=== PATIENT | male | born 2000 | race Caucasian/White ===

== ENCOUNTER 2023-07-26 16:45 | Inpatient (IN) | payer MEDICARE, MEDICAID, SELFPAY ==
[2023-07-26 16:48] VITALS: BP 129/77; BP 132/90; PULSE 100; PULSE 89; RESP 16; TEMP 36.8; O2SAT 96; O2SAT 99; BMI 36.5
[2023-07-26 17:11] VITALS: PULSE 94; RESP 14; O2SAT 98
[2023-07-26 17:12] LABS: MANUAL DIFF FLAG NO
[2023-07-26 17:15] LABS: Basophils Absolute Auto 0.1 X10*3/uL (0.0-0.2); Basophils Percent Auto 0.6 % (0-2); Eosinophils Absolute Auto 0.3 X10*3/uL (0.0-0.4); Eosinophils Percent Auto 3.5 % (0-4); Hemoglobin 15.8 g/dl (14.0-18.0); Imm Gran Abs Auto 0.03 X10*3/uL (0.00-0.03); Imm Gran Pct Auto 0.4 % (0.0-0.4); Lymphocytes Absolute Auto 2.2 X10*3/uL (1.2-4.9); Lymphocytes Percent Auto 27.4 % (20-40); Mean Corpuscular HGB Conc 35.1 g/dl (31.0-36.0); Mean Corpuscular Hemoglobin 30.4 pg (27.0-33.0); Mean Corpuscular Volume 86.5 fL (80.0-98.0); Monocytes Absolute Auto 0.6 X10*3/uL (0.1-1.2); Monocytes Percent Auto 7.5 % (2-11); Neutrophils Absolute Auto 4.8 x10*3/uL (2.0-8.3); Neutrophils Percent Auto 60.6 % (45-73); Platelet Count 290 X10*3/uL (160-400); Red Cell Distribution Width 11.9 % (11.0-16.0)
--- NOTE | 2023-07-26 17:15 | ED.GENADULT ---
HPI - General Adult General Chief complaint: Psychiatric Symptoms Stated complaint: from [facility], SI, thought of SI since sobriety Time Seen by Provider: 07/26/23 17:15 Source: patient and EMS Mode of arrival: EMS Limitations: no limitations History of Present Illness HPI narrative: Patient is a 23 year old assigned male at with a history of substance abuse presenting to the emergency department today with increased depression and suicidal ideation. Patient states that he is increasingly suicidal. Patient denies any dizziness, lightheadedness, abdominal pain, nausea, vomiting, fever, chills, blurry vision, double vision, loss of vision, chest pain, difficulty breathing, shortness of breath, back pain, night sweats, pain with urination, increased urinary frequency, increased urinary urgency, blood in his urine or stool, syncope or a near syncopal episode, recent trauma or falls, bowel incontinence, bladder incontinence, bowel retention, bladder retention, or any other complaints at this time. Relieving factors: none Exacerbating factors: none Associated symptoms: denies other symptoms Treatments prior to arrival: none Related Data Home Medications ?Medication ?Instructions ?Recorded ?Confirmed benztropine 0.5 mg tablet 0.5 mg PO BEDTIME PRN Anxiety 07/26/23 07/26/23 clonidine HCl 0.1 mg tablet 0.1 mg PO TID PRN Anxiety 07/26/23 07/26/23 escitalopram oxalate 10 mg tablet 10 mg PO DAILY 07/26/23 07/26/23 gabapentin 400 mg capsule 400 mg PO BID 07/26/23 07/26/23 haloperidol 5 mg tablet 5 mg PO BID PRN Agitation 07/26/23 07/26/23 ibuprofen 800 mg tablet 800 mg PO TID PRN pain 07/26/23 07/26/23 nicotine (polacrilex) 4 mg gum 4 mg PO Q2H 07/26/23 07/26/23 oxcarbazepine 300 mg tablet 600 mg PO BEDTIME 07/26/23 07/26/23 prazosin 2 mg capsule 2 mg PO BEDTIME 07/26/23 07/26/23 trazodone 50 mg tablet 50 mg PO BEDTIME PRN Insomnia 07/26/23 07/26/23 Allergies Allergy/AdvReac Type Severity Reaction Status Date / Time fish derived [fish] Allergy Intermediate Unknown Verified 07/26/23 16:59 Review of Systems Constitutional: Constitutional: Reports no additional constitutional complaints, Denies chills, Denies fever(s) and Denies night sweats Eyes: Eyes: Reports no additional eye complaints, Denies blurry vision, Denies change in vision, Denies diplopia, Denies eye discharge, Denies loss of vision and Denies eye pain ENT: Denies dizziness Cardiovascular: Cardiovascular: Reports no additional cardiovascular complaints, Denies chest pain, Denies lightheadedness, Denies Loss of Consciousness and Denies dyspnea Respiratory: Respiratory: Reports no additional respiratory complaints and Denies dyspnea Gastrointestinal: Gastrointestinal: Reports no additional gastrointestinal complaints, Denies abdominal pain, Denies melena, Denies hematochezia, Denies change in bowel habits and Denies change in stool character Genitourinary: Genitourinary: Reports no additional male genitourinary complaints, Denies hematuria, Denies oliguria, Denies difficulty urinating, Denies dysuria, Denies urinary frequency, Denies urinary hesitancy, Denies urinary incontinence and Denies urinary urgency Musculoskeletal: Musculoskeletal: Reports no additional musculoskeletal complaints, Denies numbness and Denies tingling Neurologic: Denies dizziness, Denies loss of vision, Denies numbness and Denies tingling Psychiatric: Psychiatric: Denies homicidal ideation and Reports suicidal ideation Endocrine: Endocrine: Reports no additional endocrine complaints Hematologic/Lymphatic: Hematologic/Lymphatic: Reports no additional hematologic/lymphatic complaints Allergic/Immunologic: Allergic/Immunologic: Reports no additional allergic/immunologic complaints PMFSH Past Medical History Attestation statement: The following information was validated with the patient. Source: old records reviewed and nursing notes reviewed Social History Social History Smoked in Last 30 Days: No Use of substances other than those prescribed or required for medical reasons: No Advance Directives: No Advance Directives Information Provided: No Physical Exam ED Vital Signs: Vital Signs - 24 hr 07/26/23 16:48 07/26/23 17:11 07/27/23 06:40 Temperature 98.3 F 98.4 F Pulse Rate 89 94 66 Respiratory Rate 16 14 16 Blood Pressure 129/77 110/60 Pulse Oximetry 96 98 97 Oxygen Delivery Method Room Air Room Air Room Air BMI result Body Mass Index 36.5 Const General: cooperative, no acute distress, alert and awake Nutritional Appearance: well nourished Orientation/consciousness: patient oriented x3 Limitations: no limitations HENMT Head: Yes normal to inspection and Yes atraumatic Ears: hearing grossly normal bilaterally and external ears normal General nose exam: Normal external nose present, no nasal discharge noted and no epistaxis Face and sinus: Yes normal facial exam, No abrasion and No laceration Mouth: Normal oral and palatal mucosa present, no drooling and no muffled voice Eyes General: appearance normal, both eyes and all related structures Periorbital: periorbital findings normal Eyelids: Yes eyelids normal Conjunctivae: conjunctivae normal Pupils: Equal, round and reactive pupils present EOM: EOMs intact bilaterally Neck Neck: Yes normal visual inspection, Yes full ROM and Yes no lymphadenopathy Chest Chest palpation & inspection: normal inspection of the chest Resp Effort & Inspection: normal respiratory effort and able to speak in complete sentences GI Inspection: Yes normal to inspection Neuro General: patient oriented x3 and moves all extremities Cranial nerves: Yes Equal, round and reactive pupils present Cognition (Neuro): normal cognition Motor exam (neuro): 5/5 motor strength present throughout Sensory Exam: Normal double simultaneous stimulation for sensation Coordination: [id number] test normal Extrem General: Yes normal to inspection, Yes full ROM and Yes capillary refill normal Psych Appearance: grossly normal Mental Status: mental status grossly normal Affect: Sad affect present Thought content: Suicidality present Course Reevaluation(s) Reevaluation #1: Patient will be an inpatient psychiatric bed search. Patient placed in physician observation as bed search occurs. Observation started at 1716. Time: 17:16 Reevaluation #2: Physician observation continued. VS stable, no acute events overnight, inpatient bed search. will continue to monitor. 07/27/23 729am Time: 07:29 Medical Decision Making Medical Decision Making MDM Narrative: Patient is a 23 year old assigned male at with a history of drug use presenting to the emergency department today with suicidal ideation. Patient's physical exam was as noted in the physical exam portion of this note. Patient's blood work was unremarkable. Patient's urine showed no acute process. I explained my physical exam findings as well as all test results to the patient. I answered all questions asked by the patient. CARE team evaluated the patient who recommended the patient be an inpatient psychiatric bed search. Patient verbalized agreement and understanding with this treatment plan and remaining an inpatient bed search. Differential Diagnosis Differential Diagnoses: The differential diagnosis associated with the presentation includes Suicidal ideation Depression Admission/Observation Consideration of admission/observation: Escalation of care including admission/observation considered Patient to be psychiatrically admitted and is currently a bed search. Consult Healthcare Provider Management of the patient was discussed with: Behavioral Health Provider (spoke to the CARE team as noted in the MDM Rationale portion of this note.) Lab Data [facility] Lab Attestation statement: I reviewed the patient's lab results. My interpretation of these results are in the MDM Rationale portion of this note. 07/26/23 17:06 07/26/23 17:06 Labs: Lab Results 07/26/23 Range/Units 17:06 WBC 8.0 (4.8-10.8) X10*3/uL RBC 5.20 (4.60-5.80) X10*6/uL Hgb 15.8 (14.0-18.0) g/dl Hct 45.0 (42.0-52.0) % MCV 86.5 (80.0-98.0) fL MCH 30.4 (27.0-33.0) pg MCHC 35.1 (31.0-36.0) g/dl RDW 11.9 (11.0-16.0) % Plt Count 290 (160-400) X10*3/uL MPV 9.0 L (9.4-12.4) fL Immature Gran % (Auto) 0.4 (0.0-0.4) % Neut % (Auto) 60.6 (45-73) % Lymph % (Auto) 27.4 (20-40) % [place] % (Auto) 7.5 (2-11) % Eos % (Auto) 3.5 (0-4) % Baso % (Auto) 0.6 (0-2) % Lymph # (Auto) 2.2 (1.2-4.9) X10*3/uL [place] # (Auto) 0.6 (0.1-1.2) X10*3/uL Eos # (Auto) 0.3 (0.0-0.4) X10*3/uL Baso # (Auto) 0.1 (0.0-0.2) X10*3/uL Abs Immat Gran (auto) 0.03 (0.00-0.03) X10*3/uL Absolute Neuts (auto) 4.8 (2.0-8.3) x10*3/uL Absolute Nucleated RBC 0.000 (0.0-0.012) X10*3/uL Nucleated RBC % (auto) 0.0 (0.0-0.2) /100WBC Sodium 142 (135-145) mmol/L Potassium 4.4 (3.3-5.1) mmol/L Chloride 105 (96-108) mmol/L Carbon Dioxide 26 (22-29) mmol/L Anion Gap 15 (12-20) BUN 15 (9-16) mg/dL Creatinine 0.92 (0.5-1.4) mg/dL Estim Creat Clear Calc 148.1 Estimated GFR > 60 Random Glucose 91 (60-115) mg/dL Calcium 10.2 (8.4-10.2) mg/dL Total Bilirubin 0.4 (0.0-1.0) mg/dL AST 26 (5-37) U/L ALT 40 (0-40) U/L Alkaline Phosphatase 96 (39-117) U/L Total Protein 8.1 H (6.5-8.0) g/dL Albumin 4.5 (3.5-5.0) g/dL Urine Color Yellow Urine Appearance Clear Urine pH 5.5 (5.0-9.0) Ur Specific [place] 1.025 (1.005-1.025) Urine Protein Negative (Neg-Trace) mg/dL Urine Glucose (UA) Negative (Negative) mg/dL Urine Ketones Negative (Negative) mg/dL Urine Blood Negative (Negative) Urine Nitrite Negative (Negative) Ur Leukocyte Esterase Negative (Negative) Urine Opiates Screen Not Detected (Not Detect) Ur Buprenorphine Scrn Not Detected (Not Detect) ng/mL Ur Oxycodone Screen Not Detected (Not Detect) ng/mL Urine Methadone Screen Not Detected (Not Detect) ng/mL Urine Fentanyl Screen Not Detected (Not Detect) Ur Barbiturates Screen Not Detected (Not Detect) Ur Phencyclidine Scrn Not Detected (Not Detect) Ur Amphetamines Screen Not Detected (Not Detect) U Benzodiazepines Scrn Not Detected (Not Detect) Urine Cocaine Screen Not Detected (Not Detect) U Marijuana (THC) Screen Not Detected (Not Detect) Ethyl Alcohol < 10 mg/dL Independent Historian Clinical information obtained from an independent historian. History obtained from or confirmed by: EMS (EMS provided additional history and confirmed the history provided by the patient.) Critical Care Time Critical Care Time Critical Care Time: Yes Total Critical Care Time: 68 Attestation: I spent 68 minutes of Critical Care Time with this patient. This does not include time spent on separately reported billable procedures. Discharge Plan Discharge Clinical Impression: Suicidal ideation Patient Disposition: Still a Patient Prescriptions: No Action ibuprofen 800 mg tablet 800 mg PO TID PRN (Reason: pain) oxcarbazepine 300 mg tablet 600 mg PO BEDTIME nicotine (polacrilex) 4 mg gum 4 mg PO Q2H trazodone 50 mg Tablet 50 mg PO BEDTIME PRN (Reason: Insomnia) Rx Instructions: [facility] escitalopram oxalate 10 mg Tablet 10 mg PO DAILY Rx Instructions: [facility] haloperidol 5 mg tablet 5 mg PO BID PRN (Reason: Agitation) clonidine HCl 0.1 mg Tablet 0.1 mg PO TID PRN (Reason: Anxiety) Rx Instructions: [facility] benztropine 0.5 mg Tablet 0.5 mg PO BEDTIME PRN (Reason: Anxiety) Rx Instructions: [place] gabapentin 400 mg Capsule 400 mg PO BID Rx Instructions: [facility] prazosin 2 mg Capsule 2 mg PO BEDTIME Rx Instructions: [facility] Interventions: [place]-Suicide Risk Severity Scale Last Done: 07/26/23 17:11 Print Language: Persian
[2023-07-26 17:16] LABS: Appearance Urine Clear; Color Urine Yellow; Glucose Urine UA Negative (Negative); Leukocyte Esterase Urine Negative (Negative); Nitrite Urine Negative (Negative); PH 5.5 (5.0-9.0); Specific Gravity - Urine 1.025 (1.005-1.025); Urine Blood Negative (Negative); Urine Ketones Negative (Negative); Urine Protein Negative (Neg-Trace)
--- NOTE | 2023-07-26 17:30 | PC.NURSE ---
Patient presents to the ED today with suicidal ideation secondary to increased stressors in his life. He reports that he is 4 months sober from drugs but ever since getting sober, he has been more stressed and is now starting to feel like ending it all would help . Patient is calm and cooperative, help seeking, cooperative with care thus far. patient aware of plan of care at this time, respirations even and unlabored, no apparent distress noted at this time
[2023-07-26 17:37] LABS: Amphetamine Screen Urine Not Detected (Not Detect); Barbiturates, Urine Not Detected (Not Detect); Benzodiazepines Screen Urine Not Detected (Not Detect); Buprenorphine Scr Not Detected (Not Detect); Cannabinoid Screen Urine Not Detected (Not Detect); Cocaine Screen Urine Not Detected (Not Detect); Fentanyl, urine Not Detected (Not Detect); Methadone Screen, Urine Not Detected (Not Detect); Opiate Screen Urine Not Detected (Not Detect); Oxycodone Screen Urine Not Detected (Not Detect); Phencyclidine Screen Urine Not Detected (Not Detect)
[2023-07-26 17:49] LABS: Alanine Aminotransferase 40 U/L (0-40); Albumin Level 4.5 g/dL (3.5-5.0); Alkaline Phosphatase 96 U/L (39-117); Anion Gap 15 (12-20); Aspartate Amino Transferase 26 U/L (5-37); Bilirubin Total 0.4 mg/dL (0.0-1.0); Blood Urea Nitrogen 15 mg/dL (9-16); Calcium 10.2 mg/dL (8.4-10.2); Carbon Dioxide 26 mmol/L (22-29); Chloride 105 mmol/L (96-108); Creatinine Clr Calc Pharmacy 148.1; Estimated Glomerular Filt Rate > 60; Ethanol < 10 mg/dL; Glucose Random 91 mg/dL (60-115); Potassium 4.4 mmol/L (3.3-5.1); Sodium 142 mmol/L (135-145); Total Protein 8.1 g/dL (6.5-8.0)
--- NOTE | 2023-07-27 05:00 | PC.NURSE ---
Patient slept through the night, no distress observed/reported, no behavior issues, deposition per care team is section-12 inpatient bed search, med rec completed/pending provider's approval, will continue to monitor
[2023-07-27 06:40] VITALS: BP 110/60; PULSE 66; RESP 16; TEMP 36.9; O2SAT 97
--- NOTE | 2023-07-27 08:03 | PC.NURSE ---
Assumed care of patient at 0645, patient appears to be sleeping, respirations even and unlabored, no apparent distress noted at this time. Continue plan of care for inpatient bedsearch
--- NOTE | 2023-07-27 09:51 | PC.NURSE ---
[facility] Enrichment Assistant Jon Key: [phone]
[2023-07-27 18:38] VITALS: RESP 16
--- NOTE | 2023-07-27 19:11 | PC.NURSE ---
patient appears to remain at rest at present respirations are even and unlabored patient appears in no distress.
[2023-07-27 21:24] VITALS: BP 109/59; PULSE 52; RESP 18; TEMP 36.6; O2SAT 97
[2023-07-27] MEDS: OXcarbazepine 300 MG TABLET 600 MG PO (21:52)
[2023-07-27] MEDS: Prazosin HCL 1 MG CAPSULE 2 MG PO (21:52)
[2023-07-27] MEDS: Gabapentin 400 MG CAPSULE PO (21:52)
--- NOTE | 2023-07-28 | ECG_ITS ---
Test Reason : check qt interval Blood Pressure : / mmHG Vent. Rate : 091 BPM Atrial Rate : 091 BPM P-R Int : 178 ms QRS Dur : 094 ms QT Int : 348 ms P-R-T Axes : 064 026 047 degrees QTc Int : 428 ms Normal sinus rhythm Normal ECG No previous ECGs available Referred By: Arnoldo Peace Electronically Signed By:Harry Sorto
[2023-07-28 06:17] VITALS: BP 113/61; PULSE 83; RESP 17; TEMP 36.7; O2SAT 95
--- NOTE | 2023-07-28 07:23 | PC.NURSE ---
Assumed care of patient at 0645, patient appears to be sleeping, respirations even and unlabored, no apparent distress noted at this time. Patient remains S12 inpatient bedsearch
[2023-07-28] MEDS: Gabapentin 400 MG CAPSULE PO ×2 (08:30→20:22)
[2023-07-28] MEDS: Nicotine Polacrilex 2 MG GUM 4 MG BUCCAL (08:30)
[2023-07-28] MEDS: Escitalopram Oxalate 10 MG TABLET PO (08:30)
--- NOTE | 2023-07-28 09:32 | MHC.CARE ---
Phone call from Maryse Cameron from [facility] program, she reports they are not wanting pt to return to program and looking to speak with clinician working with patient. She can be reached @ [phone] for collateral information.
--- NOTE | 2023-07-28 19:01 | PC.NURSE ---
patient appears to remain asleep at present respirations are even and unlabored patient appears in no distress.
[2023-07-28] MEDS: OXcarbazepine 300 MG TABLET 600 MG PO (20:22)
[2023-07-28] MEDS: Prazosin HCL 1 MG CAPSULE 2 MG PO (20:22)
[2023-07-29] VITALS: BP 110/65; PULSE 76; RESP 16; TEMP 37.1; O2SAT 98
--- NOTE | 2023-07-29 07:14 | PC.NURSE ---
Assumed care of patient at 0645. Patient is observed sleeping in there bed at this time. No signs of distress, breathing is even and unlabored at this time. Will continue plan of care.
[2023-07-29] MEDS: Gabapentin 400 MG CAPSULE PO ×2 (09:14→20:13)
[2023-07-29] MEDS: Escitalopram Oxalate 10 MG TABLET PO (09:14)
[2023-07-29 11:17] VITALS: BP 115/64; PULSE 63; RESP 14; TEMP 36.8; O2SAT 94
[2023-07-29 14:20] VITALS: BP 117/74; PULSE 85; RESP 18; TEMP 36; O2SAT 95
--- NOTE | 2023-07-29 14:57 | P.HPPS_ITS ---
HPI Date of Service: 07/29/23 Chief Complaint: depression Sources of Information: patient interviewed, chart reviewed and crisis/core team assessment reviewed HPI Subjective Notes: Ring Warning and Conditional Voluntary Healthcare Proxy: No Guardianship: No Medical Problems Affecting Mental Status: No Narrative: 23 yo male with hx of substance use disorder, Bipolar depression and SI admitted to M3 on CV. Pt states he began to have SI at the [facility] over the past 2 weeks; he reports he does not want to go back there but does not say why. Pt brought ot Ed by EMS from [facility]. Pt states he has not been consistent with his medications. He says he is taking haldol deconoate IM monthly and that he received his most recent injection at the [facility] approximately 2 weeks ago but this will need to be verified. Pt endorses depressed mood, paapthy, intermittent anger and anxiety; he reports clonidine helps with anxiety and haldol PRN helps with anger. Pt reports truam history but declines to speak about details; he reports 4 months sober from opiates. Pt denies hearing voices and no visula hallucinations. Past Psychiatric History: [facility] 2023 , [facility] respite x 5 days 2023, hx of inpatient off and on since childhood, TSS, detox, CSS and dual dx treatment. Most recent one year at program called [facility] in [facility]. Medical Evaluation Reviewed: Yes medically cleared in ED [facility] Narrative: pt denies medical problems Family History: Pt is currently homeless. born and raised in [facility]. lived with bio mother and father and grandparents growing up. has one older sister. Social History: homeless Substance History: fentanyl use until 4 months ago Trauma History: childhood was difficult but pt discloses no details Diagnostics Vital Signs (24Hr): Vital Signs - 24 hr 07/29/23 00:00 07/29/23 11:17 Temperature 98.7 F 98.3 F Pulse Rate 76 63 Respiratory Rate 16 14 Blood Pressure 110/65 115/64 Pulse Oximetry 98 94 Oxygen Delivery Method Room Air Room Air BMI result Body Mass Index 36.5 Labs 07/26/23 17:06 07/26/23 17:06 Meds/Allergies Meds Home Medications ?Medication ?Instructions ?Recorded ?Confirmed ?Type benztropine 0.5 mg tablet 0.5 mg PO BEDTIME PRN Anxiety 07/26/23 07/26/23 History clonidine HCl 0.1 mg tablet 0.1 mg PO TID PRN Anxiety 07/26/23 07/26/23 History escitalopram oxalate 10 mg tablet 10 mg PO DAILY 07/26/23 07/26/23 History gabapentin 400 mg capsule 400 mg PO BID 07/26/23 07/26/23 History haloperidol 5 mg tablet 5 mg PO BID PRN Agitation 07/26/23 07/26/23 History ibuprofen 800 mg tablet 800 mg PO TID PRN pain 07/26/23 07/26/23 History nicotine (polacrilex) 4 mg gum 4 mg PO Q2H 07/26/23 07/26/23 History oxcarbazepine 300 mg tablet 600 mg PO BEDTIME 07/26/23 07/26/23 History prazosin 2 mg capsule 2 mg PO BEDTIME 07/26/23 07/26/23 History trazodone 50 mg tablet 50 mg PO BEDTIME PRN Insomnia 07/26/23 07/26/23 History Allergies Allergies Allergy/AdvReac Type Severity Reaction Status Date / Time fish derived [fish] Allergy Intermediate Unknown Verified 07/26/23 16:59 Mental Status Exam Mental Status Exam Patient Appearance: Disheveled and Unkempt Patient Orientation: Person, Place, Time and Situation Level of Consciousness: Awake Patient Behavior: Appropriate and Cooperative Mood Description: Withdrawn, Anxious and Sad Affect Description: Withdrawn, Anxious and Sad Patient Cognition Impaired: No Ability to Follow Directions: Good Speech Pattern: Clear, Soft-Spoken and Delayed Memory Description: Intact Hallucinations: None Delusions: Not Present Thought Process: Slowed Thinking Thought Content: positive for [place] Judgement: Fair Assessment & Plan Assessment & Plan (1) Bipolar disorder current episode depressed: Status: Acute Qualifiers: Current episode severity: severe Psychotic features: with psychotic features Qualified Code(s): F31.5 - Bipolar disorder, current episode depressed, severe, with psychotic features Code(s): F31.30 - Bipolar disorder, current episode depressed, mild or moderate severity, unspecified (2) Suicidal ideation: Status: Acute Code(s): R45.851 - Suicidal ideations (3) Opioid use disorder, mild, in early remission, abuse: Status: Acute Code(s): F11.11 - Opioid abuse, in remission Plan admit to M3 Cv 15 min checks meds continued collect collateral verify haldol deconoate dose and admin date labs: CBC, CMP, TSH, T4, A1c, lipid panel. folate, vit B12 discharge planning with team Patient educated on: diagnosis, medication risk/benefits, substance abuse and therapeutic strategies Informed Consent: understands and further education needed Reason for continued inpatient stay Substantial Risk for: harm to self, inability to function and rapid decompensation Statement Statement: I have reviewed the history and physical and performed a pertinent examination on my patient. No changes have occurred unless specified. If the History and Physical was not performed prior to admission, the Hospitalist's service will be consulted for completing the admission physical. Time Spent With Patient Time: Total time managing care of this patient today _60___ minutes.
[2023-07-29 16:17] VITALS: BMI 43.5
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
[2023-07-29 20:00] VITALS: BP 119/69; PULSE 100; RESP 18; TEMP 36.2; O2SAT 96
[2023-07-29] MEDS: OXcarbazepine 300 MG TABLET 600 MG PO (20:13)
[2023-07-29] MEDS: Benztropine Mesylate 0.5 MG TABLET PO (20:14)
[2023-07-29 20:15] VITALS: BP 119/69
[2023-07-29] MEDS: Prazosin HCL 1 MG CAPSULE 2 MG PO (20:15)
[2023-07-29] MEDS: traZODone HCL 50 MG TABLET PO (20:28)
[2023-07-30 08:00] VITALS: BP 110/65; PULSE 70; RESP 16; TEMP 36.9; O2SAT 95
[2023-07-30 08:25] LABS: MANUAL DIFF FLAG NO
[2023-07-30 08:31] LABS: Basophils Percent Auto 0.7 % (0-2); Eosinophils Absolute Auto 0.2 X10*3/uL (0.0-0.4); Eosinophils Percent Auto 3.2 % (0-4); Hematocrit 44.8 % (42.0-52.0); Hemoglobin 15.6 g/dl (14.0-18.0); Imm Gran Abs Auto 0.01 X10*3/uL (0.00-0.03); Imm Gran Pct Auto 0.2 % (0.0-0.4); Lymphocytes Absolute Auto 1.6 X10*3/uL (1.2-4.9); Lymphocytes Percent Auto 29.6 % (20-40); Mean Corpuscular HGB Conc 34.8 g/dl (31.0-36.0); Mean Corpuscular Hemoglobin 30.3 pg (27.0-33.0); Mean Platelet Volume 9.2 fL (9.4-12.4); Monocytes Absolute Auto 0.4 X10*3/uL (0.1-1.2); Monocytes Percent Auto 6.9 % (2-11); Neutrophils Absolute Auto 3.2 x10*3/uL (2.0-8.3); Neutrophils Percent Auto 59.4 % (45-73); Platelet Count 237 X10*3/uL (160-400); Red Blood Count 5.15 X10*6/uL (4.60-5.80); Red Cell Distribution Width 11.8 % (11.0-16.0); White Blood Count 5.3 X10*3/uL (4.8-10.8)
[2023-07-30 09:15] LABS: Alanine Aminotransferase 35 U/L (0-40); Albumin Level 4.2 g/dL (3.5-5.0); Alkaline Phosphatase 92 U/L (39-117); Anion Gap 15 (12-20); Aspartate Amino Transferase 22 U/L (5-37); Bilirubin Direct 0.2 mg/dL (0.0-0.5); Bilirubin Total 0.6 mg/dL (0.0-1.0); Blood Urea Nitrogen 13 mg/dL (9-16); Calcium 9.9 mg/dL (8.4-10.2); Carbon Dioxide 27 mmol/L (22-29); Chloride 105 mmol/L (96-108); Cholesterol 132 mg/dL (<200); Creatinine Clr Calc Pharmacy 168.2; Estimated Glomerular Filt Rate > 60; Glucose Fasting 87 mg/dL (60-99); HDL Cholesterol 26 mg/dL (>40); LDL Cholesterol Calculated 96 mg/dL (<100); Potassium 4.5 mmol/L (3.3-5.1); Sodium 142 mmol/L (135-145); Total Protein 7.4 g/dL (6.5-8.0); Triglycerides 53 mg/dL (<150)
[2023-07-30 09:22] LABS: Estimated Average Glucose 97 mg/dL
[2023-07-30] MEDS: Gabapentin 400 MG CAPSULE PO ×2 (09:26→20:29)
[2023-07-30] MEDS: Escitalopram Oxalate 10 MG TABLET PO (09:26)
[2023-07-30 09:35] LABS: Free T4 (Free Thyroxine) 0.99 ng/dL (0.71-1.85)
--- NOTE | 2023-07-30 09:56 | HO.PSYCHPN ---
Subjective Subjective Date of Service: 07/30/23 Reason For Visit: depression Subjective Notes: Conditional Voluntary Interim History: Reviewed with Dr. Garner. Pt reports feeling depressed today;pt stated, I came here because I was feeling suicidal because when I was at [facility] there were drug dealers at every corner. It was triggering me to use since I've been sober for four months . Pt reports he would like to maintain his sobriety and reconnect with his family. Pt reports suicidal ideation without plan; pt stated, I just want to feel comfortable in my own skin . pt denies HI/VH/AH. pt requested clonidine to be increased to 0.2mg TID. Medication Compliance: Yes Side effects from medications: No Review of Systems Constitutional: Reports as per HPI Eyes: Reports as per HPI Reports as per HPI Cardiovascular: Reports as per HPI Respiratory: Reports as per HPI Gastrointestinal: Reports as per HPI Genitourinary: Reports as per HPI Musculoskeletal: Reports as per HPI Skin/Breast: Reports as per HPI Reports as per HPI Psychiatric: Reports as per HPI Endocrine: Reports as per HPI Hematologic/Lymphatic: Reports as per HPI Allergic/Immunologic: Reports as per HPI Mental Status Exam Mental Status Exam Narrative: Pt is alert and oriented; behavior is cooperative and calm; dressed in casual attire; mood is described as depressed ; eye contact appropriate; Speech is normal rate, volume and prosody and not pressured; thought process is organized and goal directed; Thought content is on tx; denies HI/VH/AH. Pt reports suicidal ideation with no plan. Diagnostics Vital Signs (24Hr): Vital Signs - 24 hr 07/29/23 11:17 07/29/23 14:20 07/29/23 20:00 Temperature 98.3 F 96.8 F 97.1 F Pulse Rate 63 85 100 Respiratory Rate 14 18 18 Blood Pressure 115/64 117/74 119/69 Pulse Oximetry 94 95 96 Oxygen Delivery Method Room Air Room Air Room Air 07/29/23 20:15 07/30/23 08:00 Temperature 98.4 F Pulse Rate 70 Respiratory Rate 16 Blood Pressure 119/69 110/65 Pulse Oximetry 95 Oxygen Delivery Method Room Air BMI result Body Mass Index 43.5 Labs 07/30/23 08:16 07/30/23 08:16 Labs: Laboratory Results - last 48 hr 07/30/23 08:16 WBC 5.3 RBC 5.15 Hgb 15.6 Hct 44.8 MCV 87.0 MCH 30.3 MCHC 34.8 RDW 11.8 Plt Count 237 MPV 9.2 L Immature Gran % (Auto) 0.2 Neut % (Auto) 59.4 Lymph % (Auto) 29.6 [place] % (Auto) 6.9 Eos % (Auto) 3.2 Baso % (Auto) 0.7 Lymph # (Auto) 1.6 [place] # (Auto) 0.4 Eos # (Auto) 0.2 Baso # (Auto) 0.0 Abs Immat Gran (auto) 0.01 Absolute Neuts (auto) 3.2 Absolute Nucleated RBC 0.000 Nucleated RBC % (auto) 0.0 Sodium 142 Potassium 4.5 Chloride 105 Carbon Dioxide 27 Anion Gap 15 BUN 13 Creatinine 0.89 Estim Creat Clear Calc 168.2 Estimated GFR > 60 Fasting Glucose 87 Estimat Average Glucose 97 Hemoglobin A1c % 5.0 Calcium 9.9 Total Bilirubin 0.6 Direct Bilirubin 0.2 AST 22 ALT 35 Alkaline Phosphatase 92 Total Protein 7.4 Albumin 4.2 Triglycerides 53 Cholesterol 132 LDL Cholesterol, Calc 96 HDL Cholesterol 26 L TSH 1.00 Free T4 0.99 Medications Medications Current Medications Acetaminophen (Acetaminophen 325 Mg Tablet) 650 mg PO Q6H PRN PRN Reason: Headache/Pain Mild Scale (1-3) Al Hydroxide/Mg Hydroxide (Magnesium Hydrox/Alum Hydrox 30 Ml Oral.Susp) 30 ml PO Q6H PRN PRN Reason: Heartburn/Nausea Benztropine Mesylate (Benztropine Mesylate 0.5 Mg Tablet) 0.5 mg PO BEDTIME [facility] Last Admin: 07/29/23 20:14 Dose: 0.5 mg Clonidine HCl (Clonidine Hcl 0.1 Mg Tablet) 0.1 mg PO TID PRN; Protocol PRN Reason: Anxiety Escitalopram Oxalate (Escitalopram Oxalate 10 Mg Tablet) 10 mg PO DAILY [facility] Last Admin: 07/30/23 09:26 Dose: 10 mg Gabapentin (Gabapentin 400 Mg Capsule) 400 mg PO BID [facility] Last Admin: 07/30/23 09:26 Dose: 400 mg Haloperidol (Haloperidol 5 Mg Tablet) 5 mg PO BID PRN PRN Reason: Agitation Hydroxyzine HCl (Hydroxyzine Hcl 25 Mg Tablet) 25 mg PO Q6H PRN PRN Reason: Anxiety Ibuprofen (Ibuprofen 400 Mg Tablet) 400 mg PO TID PRN PRN Reason: Pain, Moderate(Pain Scale 4-6) Magnesium Hydroxide (Milk Of Magnesia 30 Ml Oral.Susp) 30 ml PO DAILY PRN PRN Reason: Constipation Nicotine Polacrilex (Nicotine Polacrilex 2 Mg Gum) 4 mg BUCCAL Q2H PRN PRN Reason: Nicotine Cravings Oxcarbazepine (Oxcarbazepine 300 Mg Tablet) 600 mg PO BEDTIME [facility] Last Admin: 07/29/23 20:13 Dose: 600 mg Prazosin HCl (Prazosin Hcl 1 Mg Capsule) 2 mg PO BEDTIME [facility]; Protocol Last Admin: 07/29/23 20:15 Dose: 2 mg Trazodone HCl (Trazodone Hcl 50 Mg Tablet) 50 mg PO BEDTIME MRX1 PRN PRN Reason: Insomnia Last Admin: 07/29/23 20:28 Dose: 50 mg Allergies Allergies Allergy/AdvReac Type Severity Reaction Status Date / Time fish derived [fish] Allergy Intermediate Unknown Verified 07/26/23 16:59 Assessment & Plan Assessment & Plan (1) Bipolar disorder current episode depressed: Qualifiers: Current episode severity: severe Psychotic features: with psychotic features Qualified Code(s): F31.5 - Bipolar disorder, current episode depressed, severe, with psychotic features Status: Acute Code(s): F31.30 - Bipolar disorder, current episode depressed, mild or moderate severity, unspecified (2) Suicidal ideation: Status: Acute Code(s): R45.851 - Suicidal ideations (3) Opioid use disorder, mild, in early remission, abuse: Status: Acute Code(s): F11.11 - Opioid abuse, in remission Plan admit to M3 Cv 15 min checks meds continued collect collateral verify haldol deconoate dose and admin date labs: CBC, CMP, TSH, T4, A1c, lipid panel. folate, vit B12 discharge planning with team 07/29:Pt reports feeling depressed today;pt stated, I came here because I was feeling suicidal because when I was at [facility] there were drug dealers at every corner. It was triggering me to use since I've been sober for four months . Pt reports he would like to maintain his sobriety and reconnect with his family. Pt reports suicidal ideation without plan; pt stated, I just want to feel comfortable in my own skin . pt denies HI/VH/AH. pt requested clonidine to be increased to 0.2mg TID. Patient educated on: diagnosis, medication risk/benefits, substance abuse and therapeutic strategies Informed Consent: understands Reason for continued inpatient stay Substantial Risk for: harm to self and med/psych decompensation Time Spent With Patient Time: Total time managing care of this patient today _20___ minutes.
[2023-07-30 12:10] VITALS: BP 113/63; PULSE 79; O2SAT 96
[2023-07-30 12:12] VITALS: BP 113/63
[2023-07-30] MEDS: cloNIDine HCL 0.1 MG TABLET PO (12:12)
--- NOTE | 2023-07-30 13:39 | PC.NURSE ---
Haldol Dec 100mg IM q 4 weeks last given 07/17/23, next due 08/14/23 per Heaven CABRERA at the [facility]. Her direct line is [phone]
[2023-07-30 20:00] VITALS: BP 104/53; PULSE 53; RESP 16; TEMP 36.8; O2SAT 98
[2023-07-30] MEDS: OXcarbazepine 300 MG TABLET 600 MG PO (20:29)
[2023-07-30] MEDS: Prazosin HCL 1 MG CAPSULE 2 MG PO (20:29)
[2023-07-30] MEDS: Benztropine Mesylate 0.5 MG TABLET PO (20:30)
[2023-07-30] MEDS: traZODone HCL 50 MG TABLET PO (20:35)
[2023-07-31] MEDS: Escitalopram Oxalate 10 MG TABLET PO (08:36)
[2023-07-31] MEDS: Gabapentin 400 MG CAPSULE PO ×2 (08:36→20:27)
[2023-07-31 08:40] VITALS: BP 103/52; PULSE 60; RESP 14; TEMP 36.8; O2SAT 95
--- NOTE | 2023-07-31 10:13 | HO.PSYCHPN ---
Subjective Subjective Date of Service: 07/31/23 Reason For Visit: depression Subjective Notes: Conditional Voluntary Interim History: Reviewed with Dr. Garner. Pt reports feeling better today; pt stated, I'm doing a lot better today. Talking to the [place] helped me a lot and we said a pray and blessing. I'm not feel suicidal . Pt reports he is hoping to get into a program ; pt denies SI/HI/VH/AH. Medication Compliance: Yes Side effects from medications: No Review of Systems Constitutional: Reports as per HPI Eyes: Reports as per HPI Reports as per HPI Cardiovascular: Reports as per HPI Respiratory: Reports as per HPI Gastrointestinal: Reports as per HPI Genitourinary: Reports as per HPI Musculoskeletal: Reports as per HPI Skin/Breast: Reports as per HPI Reports as per HPI Psychiatric: Reports as per HPI Endocrine: Reports as per HPI Hematologic/Lymphatic: Reports as per HPI Allergic/Immunologic: Reports as per HPI Mental Status Exam Mental Status Exam Narrative: Pt is alert and oriented; behavior is cooperative and calm; dressed in casual attire; mood is described as better ; eye contact appropriate; Speech is normal rate, volume and prosody and not pressured; thought process is organized and goal directed; Thought content is on tx; denies SI/HI/VH/AH. Diagnostics Vital Signs (24Hr): Vital Signs - 24 hr 07/30/23 12:10 07/30/23 12:12 07/30/23 20:00 Temperature 98.3 F Pulse Rate 79 53 Respiratory Rate 16 Blood Pressure 113/63 113/63 104/53 L Pulse Oximetry 96 98 Oxygen Delivery Method Room Air 07/31/23 08:40 Temperature 98.3 F Pulse Rate 60 Respiratory Rate 14 Blood Pressure 103/52 L Pulse Oximetry 95 Oxygen Delivery Method Room Air BMI result Body Mass Index 43.5 Labs 07/30/23 08:16 07/30/23 08:16 Labs: Laboratory Results - last 48 hr 07/30/23 08:16 WBC 5.3 RBC 5.15 Hgb 15.6 Hct 44.8 MCV 87.0 MCH 30.3 MCHC 34.8 RDW 11.8 Plt Count 237 MPV 9.2 L Immature Gran % (Auto) 0.2 Neut % (Auto) 59.4 Lymph % (Auto) 29.6 [place] % (Auto) 6.9 Eos % (Auto) 3.2 Baso % (Auto) 0.7 Lymph # (Auto) 1.6 [place] # (Auto) 0.4 Eos # (Auto) 0.2 Baso # (Auto) 0.0 Abs Immat Gran (auto) 0.01 Absolute Neuts (auto) 3.2 Absolute Nucleated RBC 0.000 Nucleated RBC % (auto) 0.0 Sodium 142 Potassium 4.5 Chloride 105 Carbon Dioxide 27 Anion Gap 15 BUN 13 Creatinine 0.89 Estim Creat Clear Calc 168.2 Estimated GFR > 60 Fasting Glucose 87 Estimat Average Glucose 97 Hemoglobin A1c % 5.0 Calcium 9.9 Total Bilirubin 0.6 Direct Bilirubin 0.2 AST 22 ALT 35 Alkaline Phosphatase 92 Total Protein 7.4 Albumin 4.2 Triglycerides 53 Cholesterol 132 LDL Cholesterol, Calc 96 HDL Cholesterol 26 L TSH 1.00 Free T4 0.99 Medications Medications Current Medications Acetaminophen (Acetaminophen 325 Mg Tablet) 650 mg PO Q6H PRN PRN Reason: Headache/Pain Mild Scale (1-3) Al Hydroxide/Mg Hydroxide (Magnesium Hydrox/Alum Hydrox 30 Ml Oral.Susp) 30 ml PO Q6H PRN PRN Reason: Heartburn/Nausea Benztropine Mesylate (Benztropine Mesylate 0.5 Mg Tablet) 0.5 mg PO BEDTIME [facility] Last Admin: 07/30/23 20:30 Dose: 0.5 mg Clonidine HCl (Clonidine Hcl 0.2 Mg Tablet) 0.2 mg PO TID PRN; Protocol PRN Reason: Anxiety Escitalopram Oxalate (Escitalopram Oxalate 10 Mg Tablet) 10 mg PO DAILY [facility] Last Admin: 07/31/23 08:36 Dose: 10 mg Gabapentin (Gabapentin 400 Mg Capsule) 400 mg PO BID [facility] Last Admin: 07/31/23 08:36 Dose: 400 mg Haloperidol (Haloperidol 5 Mg Tablet) 5 mg PO BID PRN PRN Reason: Agitation Hydroxyzine HCl (Hydroxyzine Hcl 25 Mg Tablet) 25 mg PO Q6H PRN PRN Reason: Anxiety Ibuprofen (Ibuprofen 400 Mg Tablet) 400 mg PO TID PRN PRN Reason: Pain, Moderate(Pain Scale 4-6) Magnesium Hydroxide (Milk Of Magnesia 30 Ml Oral.Susp) 30 ml PO DAILY PRN PRN Reason: Constipation Nicotine Polacrilex (Nicotine Polacrilex 2 Mg Gum) 4 mg BUCCAL Q2H PRN PRN Reason: Nicotine Cravings Oxcarbazepine (Oxcarbazepine 300 Mg Tablet) 600 mg PO BEDTIME [facility] Last Admin: 07/30/23 20:29 Dose: 600 mg Prazosin HCl (Prazosin Hcl 1 Mg Capsule) 2 mg PO BEDTIME [facility]; Protocol Last Admin: 07/30/23 20:29 Dose: 2 mg Trazodone HCl (Trazodone Hcl 50 Mg Tablet) 50 mg PO BEDTIME MRX1 PRN PRN Reason: Insomnia Last Admin: 07/30/23 20:35 Dose: 50 mg Allergies Allergies Allergy/AdvReac Type Severity Reaction Status Date / Time fish derived [fish] Allergy Intermediate Unknown Verified 07/26/23 16:59 Assessment & Plan Assessment & Plan (1) Bipolar disorder current episode depressed: Qualifiers: Current episode severity: severe Psychotic features: with psychotic features Qualified Code(s): F31.5 - Bipolar disorder, current episode depressed, severe, with psychotic features Status: Acute Code(s): F31.30 - Bipolar disorder, current episode depressed, mild or moderate severity, unspecified (2) Suicidal ideation: Status: Acute Code(s): R45.851 - Suicidal ideations (3) Opioid use disorder, mild, in early remission, abuse: Status: Acute Code(s): F11.11 - Opioid abuse, in remission Plan admit to M3 Cv 15 min checks meds continued collect collateral verify haldol deconoate dose and admin date labs: CBC, CMP, TSH, T4, A1c, lipid panel. folate, vit B12 discharge planning with team 07/29:Pt reports feeling depressed today;pt stated, I came here because I was feeling suicidal because when I was at [facility] there were drug dealers at every corner. It was triggering me to use since I've been sober for four months . Pt reports he would like to maintain his sobriety and reconnect with his family. Pt reports suicidal ideation without plan; pt stated, I just want to feel comfortable in my own skin . pt denies HI/VH/AH. pt requested clonidine to be increased to 0.2mg TID. 07/30: Pt reports feeling better today; pt stated, I'm doing a lot better today. Talking to the [place] helped me a lot and we said a pray and blessing. I'm not feel suicidal . Pt reports he is hoping to get into a program ; pt denies SI/HI/VH/AH. continue current tx plan. Patient educated on: diagnosis, medication risk/benefits and therapeutic strategies Informed Consent: understands Reason for continued inpatient stay Substantial Risk for: med/psych decompensation Time Spent With Patient Time: Total time managing care of this patient today _20___ minutes.
[2023-07-31] MEDS: Nicotine Polacrilex 2 MG GUM 4 MG BUCCAL (19:25)
[2023-07-31 20:10] VITALS: BP 116/69; PULSE 71; RESP 18; TEMP 36.2; O2SAT 97
[2023-07-31] MEDS: OXcarbazepine 300 MG TABLET 600 MG PO (20:26)
[2023-07-31] MEDS: traZODone HCL 50 MG TABLET PO (20:27)
[2023-07-31 20:28] VITALS: BP 114/69
[2023-07-31] MEDS: Prazosin HCL 1 MG CAPSULE 2 MG PO (20:28)
[2023-07-31] MEDS: Benztropine Mesylate 0.5 MG TABLET PO (20:28)
[2023-08-01 07:42] VITALS: BP 81/45; PULSE 72; RESP 16; TEMP 35.9; O2SAT 96
--- NOTE | 2023-08-01 09:05 | HO.PSYCHPN ---
Subjective Subjective Date of Service: 08/01/23 Reason For Visit: depression Subjective Notes: Conditional Voluntary Interim History: Reviewed with Dr. Garner. Pt reports feeling good today; pt stated, getting away from that place I was staying make me feel better . Pt reports sleeping well. Pt denies SI/HI/VH/AH. Medication Compliance: Yes Side effects from medications: No Attending Groups: No Review of Systems Constitutional: Reports as per HPI Eyes: Reports as per HPI Reports as per HPI Cardiovascular: Reports as per HPI Respiratory: Reports as per HPI Gastrointestinal: Reports as per HPI Genitourinary: Reports as per HPI Musculoskeletal: Reports as per HPI Skin/Breast: Reports as per HPI Reports as per HPI Psychiatric: Reports as per HPI Endocrine: Reports as per HPI Hematologic/Lymphatic: Reports as per HPI Allergic/Immunologic: Reports as per HPI Mental Status Exam Mental Status Exam Narrative: Pt is alert and oriented; behavior is cooperative and calm; dressed in casual attire; mood is described as good ; eye contact appropriate; Speech is normal rate, volume and prosody and not pressured; thought process is organized and goal directed; Thought content is on tx; denies SI/HI/VH/AH. Diagnostics Vital Signs (24Hr): Vital Signs - 24 hr 07/31/23 20:10 07/31/23 20:28 08/01/23 07:42 Temperature 97.2 F 96.6 F L Pulse Rate 71 72 Respiratory Rate 18 16 Blood Pressure 116/69 114/69 81/45 L Pulse Oximetry 97 96 Oxygen Delivery Method Room Air Room Air BMI result Body Mass Index 43.5 Labs 07/30/23 08:16 07/30/23 08:16 Labs: Laboratory Results - last 48 hr 07/30/23 08:16 Sodium 142 Potassium 4.5 Chloride 105 Carbon Dioxide 27 Anion Gap 15 BUN 13 Creatinine 0.89 Estim Creat Clear Calc 168.2 Estimated GFR > 60 Fasting Glucose 87 Estimat Average Glucose 97 Hemoglobin A1c % 5.0 Calcium 9.9 Total Bilirubin 0.6 Direct Bilirubin 0.2 AST 22 ALT 35 Alkaline Phosphatase 92 Total Protein 7.4 Albumin 4.2 Triglycerides 53 Cholesterol 132 LDL Cholesterol, Calc 96 HDL Cholesterol 26 L TSH 1.00 Free T4 0.99 Medications Medications Current Medications Acetaminophen (Acetaminophen 325 Mg Tablet) 650 mg PO Q6H PRN PRN Reason: Headache/Pain Mild Scale (1-3) Al Hydroxide/Mg Hydroxide (Magnesium Hydrox/Alum Hydrox 30 Ml Oral.Susp) 30 ml PO Q6H PRN PRN Reason: Heartburn/Nausea Benztropine Mesylate (Benztropine Mesylate 0.5 Mg Tablet) 0.5 mg PO BEDTIME [facility] Last Admin: 07/31/23 20:28 Dose: 0.5 mg Clonidine HCl (Clonidine Hcl 0.2 Mg Tablet) 0.2 mg PO TID PRN; Protocol PRN Reason: Anxiety Escitalopram Oxalate (Escitalopram Oxalate 10 Mg Tablet) 10 mg PO DAILY [facility] Last Admin: 07/31/23 08:36 Dose: 10 mg Gabapentin (Gabapentin 400 Mg Capsule) 400 mg PO BID [facility] Last Admin: 07/31/23 20:27 Dose: 400 mg Haloperidol (Haloperidol 5 Mg Tablet) 5 mg PO BID PRN PRN Reason: Agitation Hydroxyzine HCl (Hydroxyzine Hcl 25 Mg Tablet) 25 mg PO Q6H PRN PRN Reason: Anxiety Ibuprofen (Ibuprofen 400 Mg Tablet) 400 mg PO TID PRN PRN Reason: Pain, Moderate(Pain Scale 4-6) Magnesium Hydroxide (Milk Of Magnesia 30 Ml Oral.Susp) 30 ml PO DAILY PRN PRN Reason: Constipation Nicotine Polacrilex (Nicotine Polacrilex 2 Mg Gum) 4 mg BUCCAL Q2H PRN PRN Reason: Nicotine Cravings Last Admin: 07/31/23 19:25 Dose: 4 mg Oxcarbazepine (Oxcarbazepine 300 Mg Tablet) 600 mg PO BEDTIME [facility] Last Admin: 07/31/23 20:26 Dose: 600 mg Prazosin HCl (Prazosin Hcl 1 Mg Capsule) 2 mg PO BEDTIME [facility]; Protocol Last Admin: 07/31/23 20:28 Dose: 2 mg Trazodone HCl (Trazodone Hcl 50 Mg Tablet) 50 mg PO BEDTIME MRX1 PRN PRN Reason: Insomnia Last Admin: 07/31/23 20:27 Dose: 50 mg Allergies Allergies Allergy/AdvReac Type Severity Reaction Status Date / Time fish derived [fish] Allergy Intermediate Unknown Verified 07/26/23 16:59 Assessment & Plan Assessment & Plan (1) Bipolar disorder current episode depressed: Qualifiers: Current episode severity: severe Psychotic features: with psychotic features Qualified Code(s): F31.5 - Bipolar disorder, current episode depressed, severe, with psychotic features Status: Acute Code(s): F31.30 - Bipolar disorder, current episode depressed, mild or moderate severity, unspecified (2) Suicidal ideation: Status: Acute Code(s): R45.851 - Suicidal ideations (3) Opioid use disorder, mild, in early remission, abuse: Status: Acute Code(s): F11.11 - Opioid abuse, in remission Plan admit to M3 Cv 15 min checks meds continued collect collateral verify haldol deconoate dose and admin date labs: CBC, CMP, TSH, T4, A1c, lipid panel. folate, vit B12 discharge planning with team 07/29:Pt reports feeling depressed today;pt stated, I came here because I was feeling suicidal because when I was at [facility] there were drug dealers at every corner. It was triggering me to use since I've been sober for four months . Pt reports he would like to maintain his sobriety and reconnect with his family. Pt reports suicidal ideation without plan; pt stated, I just want to feel comfortable in my own skin . pt denies HI/VH/AH. pt requested clonidine to be increased to 0.2mg TID. 07/30: Pt reports feeling better today; pt stated, I'm doing a lot better today. Talking to the [place] helped me a lot and we said a pray and blessing. I'm not feel suicidal . Pt reports he is hoping to get into a program ; pt denies SI/HI/VH/AH. continue current tx plan. 07/31: Pt reports feeling good today; pt stated, getting away from that place I was staying make me feel better . Pt reports sleeping well. Pt denies SI/HI/VH/AH. continue current tx plan. Patient educated on: diagnosis, medication risk/benefits and therapeutic strategies Informed Consent: understands Reason for continued inpatient stay Substantial Risk for: med/psych decompensation Time Spent With Patient Time: Total time managing care of this patient today _20___ minutes.
[2023-08-01] MEDS: Gabapentin 400 MG CAPSULE PO ×2 (09:39→20:57)
[2023-08-01] MEDS: Escitalopram Oxalate 10 MG TABLET PO (09:39)
[2023-08-01 20:50] VITALS: BP 115/56; PULSE 78; RESP 16; TEMP 37; O2SAT 95
[2023-08-01] MEDS: cloNIDine HCL 0.2 MG TABLET PO (20:55)
[2023-08-01] MEDS: Benztropine Mesylate 0.5 MG TABLET PO (20:55)
[2023-08-01] MEDS: traZODone HCL 50 MG TABLET PO (20:55)
[2023-08-01] MEDS: OXcarbazepine 300 MG TABLET 600 MG PO (20:57)
[2023-08-01] MEDS: Prazosin HCL 1 MG CAPSULE 2 MG PO (20:57)
[2023-08-02 08:00] VITALS: BP 109/53; PULSE 55; RESP 16; TEMP 37; O2SAT 97
[2023-08-02] MEDS: Escitalopram Oxalate 10 MG TABLET PO (09:18)
[2023-08-02] MEDS: Gabapentin 400 MG CAPSULE PO ×2 (09:18→22:06)
--- NOTE | 2023-08-02 10:50 | HO.PSYCHPN ---
Subjective Subjective Date of Service: 08/02/23 Reason For Visit: depression Subjective Notes: Conditional Voluntary Interim History: Reviewed with Dr. Garner. Pt reports feeling fine today; pt stated, I'm just waiting to see where I will get into for a program . Pt denies SI/HI/VH/AH. Medication Compliance: Yes Side effects from medications: No Attending Groups: Yes Review of Systems Constitutional: Reports as per HPI Eyes: Reports as per HPI Reports as per HPI Cardiovascular: Reports as per HPI Respiratory: Reports as per HPI Gastrointestinal: Reports as per HPI Genitourinary: Reports as per HPI Musculoskeletal: Reports as per HPI Skin/Breast: Reports as per HPI Reports as per HPI Psychiatric: Reports as per HPI Endocrine: Reports as per HPI Hematologic/Lymphatic: Reports as per HPI Allergic/Immunologic: Reports as per HPI Mental Status Exam Mental Status Exam Narrative: Pt is alert and oriented; behavior is cooperative and calm; dressed in casual attire; mood is described as good ; eye contact appropriate; Speech is normal rate, volume and prosody and not pressured; thought process is organized and goal directed; Thought content is on tx; denies SI/HI/VH/AH. Diagnostics Vital Signs (24Hr): Vital Signs - 24 hr 08/01/23 20:50 08/02/23 08:00 Temperature 98.6 F 98.6 F Pulse Rate 78 55 Respiratory Rate 16 16 Blood Pressure 115/56 L 109/53 L Pulse Oximetry 95 97 Oxygen Delivery Method Room Air Room Air BMI result Body Mass Index 43.5 Labs 07/30/23 08:16 07/30/23 08:16 Medications Medications Current Medications Acetaminophen (Acetaminophen 325 Mg Tablet) 650 mg PO Q6H PRN PRN Reason: Headache/Pain Mild Scale (1-3) Al Hydroxide/Mg Hydroxide (Magnesium Hydrox/Alum Hydrox 30 Ml Oral.Susp) 30 ml PO Q6H PRN PRN Reason: Heartburn/Nausea Benztropine Mesylate (Benztropine Mesylate 0.5 Mg Tablet) 0.5 mg PO BEDTIME [facility] Last Admin: 08/01/23 20:55 Dose: 0.5 mg Clonidine HCl (Clonidine Hcl 0.2 Mg Tablet) 0.2 mg PO TID PRN; Protocol PRN Reason: Anxiety Last Admin: 08/01/23 20:55 Dose: 0.2 mg Escitalopram Oxalate (Escitalopram Oxalate 10 Mg Tablet) 10 mg PO DAILY [facility] Last Admin: 08/02/23 09:18 Dose: 10 mg Gabapentin (Gabapentin 400 Mg Capsule) 400 mg PO BID [facility] Last Admin: 08/02/23 09:18 Dose: 400 mg Haloperidol (Haloperidol 5 Mg Tablet) 5 mg PO BID PRN PRN Reason: Agitation Hydroxyzine HCl (Hydroxyzine Hcl 25 Mg Tablet) 25 mg PO Q6H PRN PRN Reason: Anxiety Ibuprofen (Ibuprofen 400 Mg Tablet) 400 mg PO TID PRN PRN Reason: Pain, Moderate(Pain Scale 4-6) Magnesium Hydroxide (Milk Of Magnesia 30 Ml Oral.Susp) 30 ml PO DAILY PRN PRN Reason: Constipation Nicotine Polacrilex (Nicotine Polacrilex 2 Mg Gum) 4 mg BUCCAL Q2H PRN PRN Reason: Nicotine Cravings Last Admin: 07/31/23 19:25 Dose: 4 mg Oxcarbazepine (Oxcarbazepine 300 Mg Tablet) 600 mg PO BEDTIME [facility] Last Admin: 08/01/23 20:57 Dose: 600 mg Prazosin HCl (Prazosin Hcl 1 Mg Capsule) 2 mg PO BEDTIME [facility]; Protocol Last Admin: 08/01/23 20:57 Dose: 2 mg Trazodone HCl (Trazodone Hcl 50 Mg Tablet) 50 mg PO BEDTIME MRX1 PRN PRN Reason: Insomnia Last Admin: 08/01/23 20:55 Dose: 50 mg Allergies Allergies Allergy/AdvReac Type Severity Reaction Status Date / Time fish derived [fish] Allergy Intermediate Unknown Verified 07/26/23 16:59 Assessment & Plan Assessment & Plan (1) Bipolar disorder current episode depressed: Qualifiers: Current episode severity: severe Psychotic features: with psychotic features Qualified Code(s): F31.5 - Bipolar disorder, current episode depressed, severe, with psychotic features Status: Acute Code(s): F31.30 - Bipolar disorder, current episode depressed, mild or moderate severity, unspecified (2) Suicidal ideation: Status: Acute Code(s): R45.851 - Suicidal ideations (3) Opioid use disorder, mild, in early remission, abuse: Status: Acute Code(s): F11.11 - Opioid abuse, in remission Plan admit to M3 Cv 15 min checks meds continued collect collateral verify haldol deconoate dose and admin date labs: CBC, CMP, TSH, T4, A1c, lipid panel. folate, vit B12 discharge planning with team 07/29:Pt reports feeling depressed today;pt stated, I came here because I was feeling suicidal because when I was at [facility] there were drug dealers at every corner. It was triggering me to use since I've been sober for four months . Pt reports he would like to maintain his sobriety and reconnect with his family. Pt reports suicidal ideation without plan; pt stated, I just want to feel comfortable in my own skin . pt denies HI/VH/AH. pt requested clonidine to be increased to 0.2mg TID. 07/30: Pt reports feeling better today; pt stated, I'm doing a lot better today. Talking to the [place] helped me a lot and we said a pray and blessing. I'm not feel suicidal . Pt reports he is hoping to get into a program ; pt denies SI/HI/VH/AH. continue current tx plan. 07/31: Pt reports feeling good today; pt stated, getting away from that place I was staying make me feel better . Pt reports sleeping well. Pt denies SI/HI/VH/AH. continue current tx plan. 08/01: continue current tx plan. Patient educated on: diagnosis and medication risk/benefits Informed Consent: understands Reason for continued inpatient stay Substantial Risk for: med/psych decompensation Time Spent With Patient Time: Total time managing care of this patient today _20___ minutes.
[2023-08-02 22:00] VITALS: BP 123/75; PULSE 63; RESP 18; TEMP 36.6; O2SAT 97
[2023-08-02] MEDS: cloNIDine HCL 0.2 MG TABLET PO (22:05)
[2023-08-02] MEDS: Benztropine Mesylate 0.5 MG TABLET PO (22:05)
[2023-08-02] MEDS: OXcarbazepine 300 MG TABLET 600 MG PO (22:06)
[2023-08-02] MEDS: traZODone HCL 50 MG TABLET PO (22:06)
[2023-08-02] MEDS: Prazosin HCL 1 MG CAPSULE 2 MG PO (22:07)
--- NOTE | 2023-08-03 08:35 | HO.PSYCHPN ---
Subjective Subjective Date of Service: 08/03/23 Reason For Visit: depression Subjective Notes: Conditional Voluntary Interim History: Reviewed with Dr. Garner. Pt reports feeling good today; pt stated, I'm not anxious or depressed. I'm just waiting for a program . Pt denies SI/HI/VH/AH. Medication Compliance: Yes Side effects from medications: No Attending Groups: No Review of Systems Constitutional: Reports as per HPI Eyes: Reports as per HPI Reports as per HPI Cardiovascular: Reports as per HPI Respiratory: Reports as per HPI Gastrointestinal: Reports as per HPI Genitourinary: Reports as per HPI Musculoskeletal: Reports as per HPI Skin/Breast: Reports as per HPI Reports as per HPI Psychiatric: Reports as per HPI Endocrine: Reports as per HPI Hematologic/Lymphatic: Reports as per HPI Allergic/Immunologic: Reports as per HPI Mental Status Exam Mental Status Exam Narrative: Pt is alert and oriented; behavior is cooperative and calm; dressed in casual attire; mood is described as good ; eye contact appropriate; Speech is normal rate, volume and prosody and not pressured; thought process is organized and goal directed; Thought content is on tx; denies SI/HI/VH/AH. Diagnostics Vital Signs (24Hr): Vital Signs - 24 hr 08/02/23 22:00 Temperature 97.9 F Pulse Rate 63 Respiratory Rate 18 Blood Pressure 123/75 Pulse Oximetry 97 Oxygen Delivery Method Room Air BMI result Body Mass Index 43.5 Labs 07/30/23 08:16 07/30/23 08:16 Medications Medications Current Medications Acetaminophen (Acetaminophen 325 Mg Tablet) 650 mg PO Q6H PRN PRN Reason: Headache/Pain Mild Scale (1-3) Al Hydroxide/Mg Hydroxide (Magnesium Hydrox/Alum Hydrox 30 Ml Oral.Susp) 30 ml PO Q6H PRN PRN Reason: Heartburn/Nausea Benztropine Mesylate (Benztropine Mesylate 0.5 Mg Tablet) 0.5 mg PO BEDTIME [facility] Last Admin: 08/02/23 22:05 Dose: 0.5 mg Clonidine HCl (Clonidine Hcl 0.2 Mg Tablet) 0.2 mg PO TID PRN; Protocol PRN Reason: Anxiety Last Admin: 08/02/23 22:05 Dose: 0.2 mg Escitalopram Oxalate (Escitalopram Oxalate 10 Mg Tablet) 10 mg PO DAILY [facility] Last Admin: 08/02/23 09:18 Dose: 10 mg Gabapentin (Gabapentin 400 Mg Capsule) 400 mg PO BID [facility] Last Admin: 08/02/23 22:06 Dose: 400 mg Haloperidol (Haloperidol 5 Mg Tablet) 5 mg PO BID PRN PRN Reason: Agitation Hydroxyzine HCl (Hydroxyzine Hcl 25 Mg Tablet) 25 mg PO Q6H PRN PRN Reason: Anxiety Ibuprofen (Ibuprofen 400 Mg Tablet) 400 mg PO TID PRN PRN Reason: Pain, Moderate(Pain Scale 4-6) Magnesium Hydroxide (Milk Of Magnesia 30 Ml Oral.Susp) 30 ml PO DAILY PRN PRN Reason: Constipation Nicotine Polacrilex (Nicotine Polacrilex 2 Mg Gum) 4 mg BUCCAL Q2H PRN PRN Reason: Nicotine Cravings Last Admin: 07/31/23 19:25 Dose: 4 mg Oxcarbazepine (Oxcarbazepine 300 Mg Tablet) 600 mg PO BEDTIME [facility] Last Admin: 08/02/23 22:06 Dose: 600 mg Prazosin HCl (Prazosin Hcl 1 Mg Capsule) 2 mg PO BEDTIME [facility]; Protocol Last Admin: 08/02/23 22:07 Dose: 2 mg Trazodone HCl (Trazodone Hcl 50 Mg Tablet) 50 mg PO BEDTIME MRX1 PRN PRN Reason: Insomnia Last Admin: 08/02/23 22:06 Dose: 50 mg Allergies Allergies Allergy/AdvReac Type Severity Reaction Status Date / Time fish derived [fish] Allergy Intermediate Unknown Verified 07/26/23 16:59 Assessment & Plan Assessment & Plan (1) Bipolar disorder current episode depressed: Qualifiers: Current episode severity: severe Psychotic features: with psychotic features Qualified Code(s): F31.5 - Bipolar disorder, current episode depressed, severe, with psychotic features Status: Acute Code(s): F31.30 - Bipolar disorder, current episode depressed, mild or moderate severity, unspecified (2) Suicidal ideation: Status: Acute Code(s): R45.851 - Suicidal ideations (3) Opioid use disorder, mild, in early remission, abuse: Status: Acute Code(s): F11.11 - Opioid abuse, in remission Plan admit to M3 Cv 15 min checks meds continued collect collateral verify haldol deconoate dose and admin date labs: CBC, CMP, TSH, T4, A1c, lipid panel. folate, vit B12 discharge planning with team 07/29:Pt reports feeling depressed today;pt stated, I came here because I was feeling suicidal because when I was at [facility] there were drug dealers at every corner. It was triggering me to use since I've been sober for four months . Pt reports he would like to maintain his sobriety and reconnect with his family. Pt reports suicidal ideation without plan; pt stated, I just want to feel comfortable in my own skin . pt denies HI/VH/AH. pt requested clonidine to be increased to 0.2mg TID. 07/30: Pt reports feeling better today; pt stated, I'm doing a lot better today. Talking to the [place] helped me a lot and we said a pray and blessing. I'm not feel suicidal . Pt reports he is hoping to get into a program ; pt denies SI/HI/VH/AH. continue current tx plan. 07/31: Pt reports feeling good today; pt stated, getting away from that place I was staying make me feel better . Pt reports sleeping well. Pt denies SI/HI/VH/AH. continue current tx plan. 08/01: continue current tx plan. 08/02: continue tx plan. Patient educated on: diagnosis and medication risk/benefits Informed Consent: understands Reason for continued inpatient stay Substantial Risk for: med/psych decompensation Time Spent With Patient Time: Total time managing care of this patient today _20___ minutes.
[2023-08-03 08:50] VITALS: BP 100/57; PULSE 61; RESP 14; TEMP 36.8; O2SAT 95
[2023-08-03] MEDS: Escitalopram Oxalate 10 MG TABLET PO (09:30)
[2023-08-03] MEDS: Gabapentin 400 MG CAPSULE PO ×2 (09:30→21:45)
[2023-08-03 21:35] VITALS: BP 116/56; PULSE 58; RESP 18; TEMP 36.9; O2SAT 98
[2023-08-03] MEDS: OXcarbazepine 300 MG TABLET 600 MG PO (21:45)
[2023-08-03] MEDS: traZODone HCL 50 MG TABLET PO (21:45)
[2023-08-03] MEDS: Benztropine Mesylate 0.5 MG TABLET PO (21:45)
[2023-08-03] MEDS: Prazosin HCL 1 MG CAPSULE 2 MG PO (21:45)
[2023-08-04 09:00] VITALS: BP 100/55; PULSE 57; RESP 16; TEMP 36.9; O2SAT 96
[2023-08-04] MEDS: Escitalopram Oxalate 10 MG TABLET PO (09:05)
[2023-08-04] MEDS: Gabapentin 400 MG CAPSULE PO ×2 (09:05→20:53)
--- NOTE | 2023-08-04 09:20 | HO.PSYCHPN ---
Subjective Subjective Date of Service: 08/04/23 Reason For Visit: depression Subjective Notes: Conditional Voluntary Interim History: Reviewed with Dr. Garner. keeping to self. Pt reports feeling good today; slept well. pt stated, I'm feeling more stable with the medications. I'm focused on staying sober . Pt denies SI/HI/VH/AH. Medication Compliance: Yes Side effects from medications: No Attending Groups: No Review of Systems Constitutional: Reports as per HPI Eyes: Reports as per HPI Reports as per HPI Cardiovascular: Reports as per HPI Respiratory: Reports as per HPI Gastrointestinal: Reports as per HPI Genitourinary: Reports as per HPI Musculoskeletal: Reports as per HPI Skin/Breast: Reports as per HPI Reports as per HPI Psychiatric: Reports as per HPI Endocrine: Reports as per HPI Hematologic/Lymphatic: Reports as per HPI Allergic/Immunologic: Reports as per HPI Mental Status Exam Mental Status Exam Narrative: Pt is alert and oriented; behavior is cooperative and calm; dressed in casual attire; mood is described as good ; eye contact appropriate; Speech is normal rate, volume and prosody and not pressured; thought process is organized and goal directed; Thought content is on tx; denies SI/HI/VH/AH. Diagnostics Vital Signs (24Hr): Vital Signs - 24 hr 08/03/23 21:35 Temperature 98.5 F Pulse Rate 58 Respiratory Rate 18 Blood Pressure 116/56 L Pulse Oximetry 98 Oxygen Delivery Method Room Air BMI result Body Mass Index 43.5 Labs 07/30/23 08:16 07/30/23 08:16 Medications Medications Current Medications Acetaminophen (Acetaminophen 325 Mg Tablet) 650 mg PO Q6H PRN PRN Reason: Headache/Pain Mild Scale (1-3) Al Hydroxide/Mg Hydroxide (Magnesium Hydrox/Alum Hydrox 30 Ml Oral.Susp) 30 ml PO Q6H PRN PRN Reason: Heartburn/Nausea Benztropine Mesylate (Benztropine Mesylate 0.5 Mg Tablet) 0.5 mg PO BEDTIME [facility] Last Admin: 08/03/23 21:45 Dose: 0.5 mg Clonidine HCl (Clonidine Hcl 0.2 Mg Tablet) 0.2 mg PO TID PRN; Protocol PRN Reason: Anxiety Last Admin: 08/02/23 22:05 Dose: 0.2 mg Escitalopram Oxalate (Escitalopram Oxalate 10 Mg Tablet) 10 mg PO DAILY [facility] Last Admin: 08/04/23 09:05 Dose: 10 mg Gabapentin (Gabapentin 400 Mg Capsule) 400 mg PO BID [facility] Last Admin: 08/04/23 09:05 Dose: 400 mg Haloperidol (Haloperidol 5 Mg Tablet) 5 mg PO BID PRN PRN Reason: Agitation Hydroxyzine HCl (Hydroxyzine Hcl 25 Mg Tablet) 25 mg PO Q6H PRN PRN Reason: Anxiety Ibuprofen (Ibuprofen 400 Mg Tablet) 400 mg PO TID PRN PRN Reason: Pain, Moderate(Pain Scale 4-6) Magnesium Hydroxide (Milk Of Magnesia 30 Ml Oral.Susp) 30 ml PO DAILY PRN PRN Reason: Constipation Nicotine Polacrilex (Nicotine Polacrilex 2 Mg Gum) 4 mg BUCCAL Q2H PRN PRN Reason: Nicotine Cravings Last Admin: 07/31/23 19:25 Dose: 4 mg Oxcarbazepine (Oxcarbazepine 300 Mg Tablet) 600 mg PO BEDTIME [facility] Last Admin: 08/03/23 21:45 Dose: 600 mg Prazosin HCl (Prazosin Hcl 1 Mg Capsule) 2 mg PO BEDTIME [facility]; Protocol Last Admin: 08/03/23 21:45 Dose: 2 mg Trazodone HCl (Trazodone Hcl 50 Mg Tablet) 50 mg PO BEDTIME MRX1 PRN PRN Reason: Insomnia Last Admin: 08/03/23 21:45 Dose: 50 mg Allergies Allergies Allergy/AdvReac Type Severity Reaction Status Date / Time fish derived [fish] Allergy Intermediate Unknown Verified 07/26/23 16:59 Assessment & Plan Assessment & Plan (1) Bipolar disorder current episode depressed: Qualifiers: Current episode severity: severe Psychotic features: with psychotic features Qualified Code(s): F31.5 - Bipolar disorder, current episode depressed, severe, with psychotic features Status: Acute Code(s): F31.30 - Bipolar disorder, current episode depressed, mild or moderate severity, unspecified (2) Suicidal ideation: Status: Acute Code(s): R45.851 - Suicidal ideations (3) Opioid use disorder, mild, in early remission, abuse: Status: Acute Code(s): F11.11 - Opioid abuse, in remission Plan admit to M3 Cv 15 min checks meds continued collect collateral verify haldol deconoate dose and admin date labs: CBC, CMP, TSH, T4, A1c, lipid panel. folate, vit B12 discharge planning with team 07/29:Pt reports feeling depressed today;pt stated, I came here because I was feeling suicidal because when I was at [facility] there were drug dealers at every corner. It was triggering me to use since I've been sober for four months . Pt reports he would like to maintain his sobriety and reconnect with his family. Pt reports suicidal ideation without plan; pt stated, I just want to feel comfortable in my own skin . pt denies HI/VH/AH. pt requested clonidine to be increased to 0.2mg TID. 07/30: Pt reports feeling better today; pt stated, I'm doing a lot better today. Talking to the [place] helped me a lot and we said a pray and blessing. I'm not feel suicidal . Pt reports he is hoping to get into a program ; pt denies SI/HI/VH/AH. continue current tx plan. 07/31: Pt reports feeling good today; pt stated, getting away from that place I was staying make me feel better . Pt reports sleeping well. Pt denies SI/HI/VH/AH. continue current tx plan. 08/01: continue current tx plan. 08/02: continue tx plan. 08/03: keeping to self. Pt reports feeling good today; slept well. pt stated, I'm feeling more stable with the medications. I'm focused on staying sober . Pt denies SI/HI/VH/AH. Patient educated on: diagnosis, medication risk/benefits, substance abuse and therapeutic strategies Informed Consent: understands Reason for continued inpatient stay Substantial Risk for: med/psych decompensation Time Spent With Patient Time: Total time managing care of this patient today _20___ minutes.
[2023-08-04] MEDS: hydrOXYzine HCL 25 MG TABLET PO (17:15)
[2023-08-04 19:55] VITALS: BP 122/67; PULSE 77; RESP 18; TEMP 36.2; O2SAT 97
[2023-08-04 20:00] VITALS: BP 122/66; PULSE 77; RESP 16; TEMP 36.2; O2SAT 97
[2023-08-04] MEDS: OXcarbazepine 300 MG TABLET 600 MG PO (20:53)
[2023-08-04] MEDS: traZODone HCL 50 MG TABLET PO (20:53)
[2023-08-04 20:54] VITALS: BP 122/7
[2023-08-04] MEDS: Benztropine Mesylate 0.5 MG TABLET PO (20:54)
[2023-08-04] MEDS: Prazosin HCL 1 MG CAPSULE 2 MG PO (20:54)
[2023-08-05 08:00] VITALS: BP 105/57; PULSE 54; RESP 18; TEMP 36.6; O2SAT 95
[2023-08-05] MEDS: Escitalopram Oxalate 10 MG TABLET PO (09:54)
[2023-08-05] MEDS: Gabapentin 400 MG CAPSULE PO ×2 (09:54→21:29)
--- NOTE | 2023-08-05 11:05 | P.PNPSI_ITS ---
Subjective Subjective Date of Service: 08/05/23 Reason For Visit: depression Subjective Notes: Conditional Voluntary Interim History: Pt slept most of the night. He reports mood is much improved and he is awaiting referral for residential tx. He denies SI/HI. No VH/AH. No overt delusional content noted or reported. No behavioral concerns. Taking medications as prescribed. No Side effect nor EPS noted. Attends assigned groups. Diagnostics Vital Signs (24Hr): Vital Signs - 24 hr 08/04/23 19:55 08/04/23 20:00 08/04/23 20:54 Temperature 97.1 F 97.1 F Pulse Rate 77 77 Respiratory Rate 18 16 Blood Pressure 122/67 122/66 122/7 L Pulse Oximetry 97 97 Oxygen Delivery Method Room Air Room Air 08/05/23 08:00 Temperature 98 F Pulse Rate 54 Respiratory Rate 18 Blood Pressure 105/57 L Pulse Oximetry 95 Oxygen Delivery Method Room Air BMI result Body Mass Index 43.5 Labs 07/30/23 08:16 07/30/23 08:16 Medications Medications Current Medications Acetaminophen (Acetaminophen 325 Mg Tablet) 650 mg PO Q6H PRN PRN Reason: Headache/Pain Mild Scale (1-3) Al Hydroxide/Mg Hydroxide (Magnesium Hydrox/Alum Hydrox 30 Ml Oral.Susp) 30 ml PO Q6H PRN PRN Reason: Heartburn/Nausea Benztropine Mesylate (Benztropine Mesylate 0.5 Mg Tablet) 0.5 mg PO BEDTIME [facility] Last Admin: 08/04/23 20:54 Dose: 0.5 mg Clonidine HCl (Clonidine Hcl 0.2 Mg Tablet) 0.2 mg PO TID PRN; Protocol PRN Reason: Anxiety Last Admin: 08/02/23 22:05 Dose: 0.2 mg Escitalopram Oxalate (Escitalopram Oxalate 10 Mg Tablet) 10 mg PO DAILY [facility] Last Admin: 08/05/23 09:54 Dose: 10 mg Gabapentin (Gabapentin 400 Mg Capsule) 400 mg PO BID [facility] Last Admin: 08/05/23 09:54 Dose: 400 mg Haloperidol (Haloperidol 5 Mg Tablet) 5 mg PO BID PRN PRN Reason: Agitation Hydroxyzine HCl (Hydroxyzine Hcl 25 Mg Tablet) 25 mg PO Q6H PRN PRN Reason: Anxiety Last Admin: 08/04/23 17:15 Dose: 25 mg Ibuprofen (Ibuprofen 400 Mg Tablet) 400 mg PO TID PRN PRN Reason: Pain, Moderate(Pain Scale 4-6) Magnesium Hydroxide (Milk Of Magnesia 30 Ml Oral.Susp) 30 ml PO DAILY PRN PRN Reason: Constipation Nicotine Polacrilex (Nicotine Polacrilex 2 Mg Gum) 4 mg BUCCAL Q2H PRN PRN Reason: Nicotine Cravings Last Admin: 07/31/23 19:25 Dose: 4 mg Oxcarbazepine (Oxcarbazepine 300 Mg Tablet) 600 mg PO BEDTIME [facility] Last Admin: 08/04/23 20:53 Dose: 600 mg Prazosin HCl (Prazosin Hcl 1 Mg Capsule) 2 mg PO BEDTIME [facility]; Protocol Last Admin: 08/04/23 20:54 Dose: 2 mg Trazodone HCl (Trazodone Hcl 50 Mg Tablet) 50 mg PO BEDTIME MRX1 PRN PRN Reason: Insomnia Last Admin: 08/04/23 20:53 Dose: 50 mg Allergies Allergies Allergy/AdvReac Type Severity Reaction Status Date / Time fish derived [fish] Allergy Intermediate Unknown Verified 07/26/23 16:59 Assessment & Plan Assessment & Plan (1) Bipolar disorder current episode depressed: Qualifiers: Current episode severity: severe Psychotic features: with psychotic features Qualified Code(s): F31.5 - Bipolar disorder, current episode depressed, severe, with psychotic features Status: Acute Code(s): F31.30 - Bipolar disorder, current episode depressed, mild or moderate severity, unspecified (2) Suicidal ideation: Status: Acute Code(s): R45.851 - Suicidal ideations (3) Opioid use disorder, mild, in early remission, abuse: Status: Acute Code(s): F11.11 - Opioid abuse, in remission Plan admit to M3 Cv 15 min checks meds continued collect collateral verify haldol deconoate dose and admin date labs: CBC, CMP, TSH, T4, A1c, lipid panel. folate, vit B12 discharge planning with team 07/29:Pt reports feeling depressed today;pt stated, I came here because I was feeling suicidal because when I was at [facility] there were drug dealers at every corner. It was triggering me to use since I've been sober for four months . Pt reports he would like to maintain his sobriety and reconnect with his family. Pt reports suicidal ideation without plan; pt stated, I just want to feel comfortable in my own skin . pt denies HI/VH/AH. pt requested clonidine to be increased to 0.2mg TID. 07/30: Pt reports feeling better today; pt stated, I'm doing a lot better today. Talking to the [place] helped me a lot and we said a pray and blessing. I'm not feel suicidal . Pt reports he is hoping to get into a program ; pt denies SI/HI/VH/AH. continue current tx plan. 07/31: Pt reports feeling good today; pt stated, getting away from that place I was staying make me feel better . Pt reports sleeping well. Pt denies SI/HI/VH/AH. continue current tx plan. 08/01: continue current tx plan. 08/02: continue tx plan. 08/03: keeping to self. Pt reports feeling good today; slept well. pt stated, I'm feeling more stable with the medications. I'm focused on staying sober . Pt denies SI/HI/VH/AH. 08/04 continue tx. Reason for continued inpatient stay Substantial Risk for: inability to function Time Spent With Patient Time: Total time managing care of this patient today ____ minutes.
[2023-08-05 20:11] VITALS: BP 121/60; PULSE 95; RESP 20; TEMP 36.8; O2SAT 96
[2023-08-05 21:28] VITALS: BP 121/69
[2023-08-05] MEDS: Prazosin HCL 1 MG CAPSULE 2 MG PO (21:28)
[2023-08-05] MEDS: OXcarbazepine 300 MG TABLET 600 MG PO (21:28)
[2023-08-05] MEDS: Benztropine Mesylate 0.5 MG TABLET PO (21:29)
[2023-08-05] MEDS: traZODone HCL 50 MG TABLET PO (21:32)
[2023-08-06 07:41] VITALS: BP 108/53; PULSE 69; RESP 18; TEMP 36.5; O2SAT 96
[2023-08-06] MEDS: Gabapentin 400 MG CAPSULE PO ×2 (09:25→22:05)
[2023-08-06] MEDS: Escitalopram Oxalate 10 MG TABLET PO (09:25)
--- NOTE | 2023-08-06 16:57 | P.PNPSI_ITS ---
Subjective Subjective Date of Service: 08/06/23 Reason For Visit: depression Subjective Notes: Conditional Voluntary Interim History: Pt slept most of the night. He reports mood is much improved and he is awaiting referral for residential tx. He denies SI/HI. No VH/AH. No overt delusional content noted or reported. No behavioral concerns. Taking medications as prescribed. No Side effect nor EPS noted. Attends assigned groups. Review of Systems Constitutional: Reports as per HPI, Reports no additional constitutional complaints, Denies chills, Denies fever(s) and Denies night sweats Eyes: Reports as per HPI, Reports no additional eye complaints, Denies blurry vision, Denies change in vision, Denies diplopia, Denies eye discharge, Denies loss of vision and Denies eye pain Reports as per HPI and Denies dizziness Cardiovascular: Reports as per HPI, Reports no additional cardiovascular complaints, Denies chest pain, Denies lightheadedness, Denies Loss of Consciousness and Denies dyspnea Respiratory: Reports as per HPI, Reports no additional respiratory complaints and Denies dyspnea Gastrointestinal: Reports as per HPI, Reports no additional gastrointestinal complaints, Denies abdominal pain, Denies melena, Denies hematochezia, Denies change in bowel habits and Denies change in stool character Genitourinary: Reports no additional male genitourinary complaints, Reports as per HPI, Denies hematuria, Denies oliguria, Denies difficulty urinating, Denies dysuria, Denies urinary frequency, Denies urinary hesitancy, Denies urinary incontinence and Denies urinary urgency Musculoskeletal: Reports no additional musculoskeletal complaints, Reports as per HPI, Denies numbness and Denies tingling Skin/Breast: Reports as per HPI Reports as per HPI, Denies dizziness, Denies loss of vision, Denies numbness and Denies tingling Psychiatric: Reports as per HPI, Denies homicidal ideation and Reports suicidal ideation Endocrine: Reports no additional endocrine complaints and Reports as per HPI Hematologic/Lymphatic: Reports no additional hematologic/lymphatic complaints and Reports as per HPI Allergic/Immunologic: Reports no additional allergic/immunologic complaints and Reports as per HPI Mental Status Exam Mental Status Exam Narrative: Pt is alert and oriented; behavior is cooperative and calm; dressed in casual attire; mood is described as good ; eye contact appropriate; Speech is normal rate, volume and prosody and not pressured; thought process is organized and goal directed; Thought content is on tx; denies SI/HI/VH/AH. Diagnostics Vital Signs (24Hr): Vital Signs - 24 hr 08/05/23 20:11 08/05/23 21:28 08/06/23 07:41 Temperature 98.2 F 97.7 F Pulse Rate 95 69 Respiratory Rate 20 18 Blood Pressure 121/60 121/69 108/53 L Pulse Oximetry 96 96 Oxygen Delivery Method Room Air Room Air BMI result Body Mass Index 43.5 Labs 07/30/23 08:16 07/30/23 08:16 Medications Medications Current Medications Acetaminophen (Acetaminophen 325 Mg Tablet) 650 mg PO Q6H PRN PRN Reason: Headache/Pain Mild Scale (1-3) Al Hydroxide/Mg Hydroxide (Magnesium Hydrox/Alum Hydrox 30 Ml Oral.Susp) 30 ml PO Q6H PRN PRN Reason: Heartburn/Nausea Benztropine Mesylate (Benztropine Mesylate 0.5 Mg Tablet) 0.5 mg PO BEDTIME [facility] Last Admin: 08/05/23 21:29 Dose: 0.5 mg Clonidine HCl (Clonidine Hcl 0.2 Mg Tablet) 0.2 mg PO TID PRN; Protocol PRN Reason: Anxiety Last Admin: 08/02/23 22:05 Dose: 0.2 mg Escitalopram Oxalate (Escitalopram Oxalate 10 Mg Tablet) 10 mg PO DAILY [facility] Last Admin: 08/06/23 09:25 Dose: 10 mg Gabapentin (Gabapentin 400 Mg Capsule) 400 mg PO BID [facility] Last Admin: 08/06/23 09:25 Dose: 400 mg Haloperidol (Haloperidol 5 Mg Tablet) 5 mg PO BID PRN PRN Reason: Agitation Hydroxyzine HCl (Hydroxyzine Hcl 25 Mg Tablet) 25 mg PO Q6H PRN PRN Reason: Anxiety Last Admin: 08/04/23 17:15 Dose: 25 mg Ibuprofen (Ibuprofen 400 Mg Tablet) 400 mg PO TID PRN PRN Reason: Pain, Moderate(Pain Scale 4-6) Magnesium Hydroxide (Milk Of Magnesia 30 Ml Oral.Susp) 30 ml PO DAILY PRN PRN Reason: Constipation Nicotine Polacrilex (Nicotine Polacrilex 2 Mg Gum) 4 mg BUCCAL Q2H PRN PRN Reason: Nicotine Cravings Last Admin: 07/31/23 19:25 Dose: 4 mg Oxcarbazepine (Oxcarbazepine 300 Mg Tablet) 600 mg PO BEDTIME [facility] Last Admin: 08/05/23 21:28 Dose: 600 mg Prazosin HCl (Prazosin Hcl 1 Mg Capsule) 2 mg PO BEDTIME [facility]; Protocol Last Admin: 08/05/23 21:28 Dose: 2 mg Trazodone HCl (Trazodone Hcl 50 Mg Tablet) 50 mg PO BEDTIME MRX1 PRN PRN Reason: Insomnia Last Admin: 08/05/23 21:32 Dose: 50 mg Allergies Allergies Allergy/AdvReac Type Severity Reaction Status Date / Time fish derived [fish] Allergy Intermediate Unknown Verified 07/26/23 16:59 Assessment & Plan Assessment & Plan (1) Bipolar disorder current episode depressed: Qualifiers: Current episode severity: severe Psychotic features: with psychotic features Qualified Code(s): F31.5 - Bipolar disorder, current episode depressed, severe, with psychotic features Status: Acute Code(s): F31.30 - Bipolar disorder, current episode depressed, mild or moderate severity, unspecified (2) Suicidal ideation: Status: Acute Code(s): R45.851 - Suicidal ideations (3) Opioid use disorder, mild, in early remission, abuse: Status: Acute Code(s): F11.11 - Opioid abuse, in remission Plan admit to M3 Cv 15 min checks meds continued collect collateral verify haldol deconoate dose and admin date labs: CBC, CMP, TSH, T4, A1c, lipid panel. folate, vit B12 discharge planning with team 07/29:Pt reports feeling depressed today;pt stated, I came here because I was feeling suicidal because when I was at [facility] there were drug dealers at every corner. It was triggering me to use since I've been sober for four months . Pt reports he would like to maintain his sobriety and reconnect with his family. Pt reports suicidal ideation without plan; pt stated, I just want to feel comfortable in my own skin . pt denies HI/VH/AH. pt requested clonidine to be increased to 0.2mg TID. 07/30: Pt reports feeling better today; pt stated, I'm doing a lot better today. Talking to the [place] helped me a lot and we said a pray and blessing. I'm not feel suicidal . Pt reports he is hoping to get into a program ; pt denies SI/HI/VH/AH. continue current tx plan. 07/31: Pt reports feeling good today; pt stated, getting away from that place I was staying make me feel better . Pt reports sleeping well. Pt denies SI/HI/VH/AH. continue current tx plan. 08/01: continue current tx plan. 08/02: continue tx plan. 08/03: keeping to self. Pt reports feeling good today; slept well. pt stated, I'm feeling more stable with the medications. I'm focused on staying sober . Pt denies SI/HI/VH/AH. 08/04 continue tx. 08/05 continue tx. Reason for continued inpatient stay Substantial Risk for: stable for discharge Time Spent With Patient Time: Total time managing care of this patient today ____ minutes.
[2023-08-06 21:56] VITALS: BP 108/55; PULSE 60; RESP 16; TEMP 37; O2SAT 95
[2023-08-06] MEDS: OXcarbazepine 300 MG TABLET 600 MG PO (22:05)
[2023-08-06] MEDS: Benztropine Mesylate 0.5 MG TABLET PO (22:05)
[2023-08-06] MEDS: Prazosin HCL 1 MG CAPSULE 2 MG PO (22:05)
[2023-08-06] MEDS: traZODone HCL 50 MG TABLET PO (22:05)
[2023-08-07 07:43] VITALS: BP 105/53; PULSE 56; RESP 16; TEMP 35.7; O2SAT 98
[2023-08-07] MEDS: Gabapentin 400 MG CAPSULE PO ×2 (09:25→21:13)
[2023-08-07] MEDS: Escitalopram Oxalate 10 MG TABLET PO (09:25)
--- NOTE | 2023-08-07 09:38 | HO.PSYCHPN ---
Subjective Subjective Date of Service: 08/07/23 Reason For Visit: depression Subjective Notes: Conditional Voluntary Interim History: Pt slept most of the night. He continues to report mood is much improved and he is awaiting referral for residential tx. He denies SI/HI. No VH/AH. No overt delusional content noted or reported. No behavioral concerns. Taking medications as prescribed. No Side effect nor EPS noted. Attends assigned groups. Review of Systems Constitutional: Reports as per HPI, Reports no additional constitutional complaints, Denies chills, Denies fever(s) and Denies night sweats Eyes: Reports as per HPI, Reports no additional eye complaints, Denies blurry vision, Denies change in vision, Denies diplopia, Denies eye discharge, Denies loss of vision and Denies eye pain Reports as per HPI and Denies dizziness Cardiovascular: Reports as per HPI, Reports no additional cardiovascular complaints, Denies chest pain, Denies lightheadedness, Denies Loss of Consciousness and Denies dyspnea Respiratory: Reports as per HPI, Reports no additional respiratory complaints and Denies dyspnea Gastrointestinal: Reports as per HPI, Reports no additional gastrointestinal complaints, Denies abdominal pain, Denies melena, Denies hematochezia, Denies change in bowel habits and Denies change in stool character Genitourinary: Reports no additional male genitourinary complaints, Reports as per HPI, Denies hematuria, Denies oliguria, Denies difficulty urinating, Denies dysuria, Denies urinary frequency, Denies urinary hesitancy, Denies urinary incontinence and Denies urinary urgency Musculoskeletal: Reports no additional musculoskeletal complaints, Reports as per HPI, Denies numbness and Denies tingling Skin/Breast: Reports as per HPI Reports as per HPI, Denies dizziness, Denies loss of vision, Denies numbness and Denies tingling Psychiatric: Reports as per HPI, Denies homicidal ideation and Reports suicidal ideation Endocrine: Reports no additional endocrine complaints and Reports as per HPI Hematologic/Lymphatic: Reports no additional hematologic/lymphatic complaints and Reports as per HPI Allergic/Immunologic: Reports no additional allergic/immunologic complaints and Reports as per HPI Mental Status Exam Mental Status Exam Narrative: Pt is alert and oriented; behavior is cooperative and calm; dressed in casual attire; mood is described as good ; eye contact appropriate; Speech is normal rate, volume and prosody and not pressured; thought process is organized and goal directed; Thought content is on tx; denies SI/HI/VH/AH. Diagnostics Vital Signs (24Hr): Vital Signs - 24 hr 08/06/23 21:56 08/07/23 07:43 Temperature 98.6 F 96.3 F L Pulse Rate 60 56 Respiratory Rate 16 16 Blood Pressure 108/55 L 105/53 L Pulse Oximetry 95 98 Oxygen Delivery Method Room Air Room Air BMI result Body Mass Index 43.5 Labs 07/30/23 08:16 07/30/23 08:16 Medications Medications Current Medications Acetaminophen (Acetaminophen 325 Mg Tablet) 650 mg PO Q6H PRN PRN Reason: Headache/Pain Mild Scale (1-3) Al Hydroxide/Mg Hydroxide (Magnesium Hydrox/Alum Hydrox 30 Ml Oral.Susp) 30 ml PO Q6H PRN PRN Reason: Heartburn/Nausea Benztropine Mesylate (Benztropine Mesylate 0.5 Mg Tablet) 0.5 mg PO BEDTIME YUNG Last Admin: 08/06/23 22:05 Dose: 0.5 mg Clonidine HCl (Clonidine Hcl 0.2 Mg Tablet) 0.2 mg PO TID PRN; Protocol PRN Reason: Anxiety Last Admin: 08/02/23 22:05 Dose: 0.2 mg Escitalopram Oxalate (Escitalopram Oxalate 10 Mg Tablet) 10 mg PO DAILY [facility] Last Admin: 08/07/23 09:25 Dose: 10 mg Gabapentin (Gabapentin 400 Mg Capsule) 400 mg PO BID YUNG Last Admin: 08/07/23 09:25 Dose: 400 mg Haloperidol (Haloperidol 5 Mg Tablet) 5 mg PO BID PRN PRN Reason: Agitation Hydroxyzine HCl (Hydroxyzine Hcl 25 Mg Tablet) 25 mg PO Q6H PRN PRN Reason: Anxiety Last Admin: 08/04/23 17:15 Dose: 25 mg Ibuprofen (Ibuprofen 400 Mg Tablet) 400 mg PO TID PRN PRN Reason: Pain, Moderate(Pain Scale 4-6) Magnesium Hydroxide (Milk Of Magnesia 30 Ml Oral.Susp) 30 ml PO DAILY PRN PRN Reason: Constipation Nicotine Polacrilex (Nicotine Polacrilex 2 Mg Gum) 4 mg BUCCAL Q2H PRN PRN Reason: Nicotine Cravings Last Admin: 07/31/23 19:25 Dose: 4 mg Oxcarbazepine (Oxcarbazepine 300 Mg Tablet) 600 mg PO BEDTIME YUNG Last Admin: 08/06/23 22:05 Dose: 600 mg Prazosin HCl (Prazosin Hcl 1 Mg Capsule) 2 mg PO BEDTIME YUNG; Protocol Last Admin: 08/06/23 22:05 Dose: 2 mg Trazodone HCl (Trazodone Hcl 50 Mg Tablet) 50 mg PO BEDTIME MRX1 PRN PRN Reason: Insomnia Last Admin: 08/06/23 22:05 Dose: 50 mg Allergies Allergies Allergy/AdvReac Type Severity Reaction Status Date / Time fish derived [fish] Allergy Intermediate Unknown Verified 07/26/23 16:59 Assessment & Plan Assessment & Plan (1) Bipolar disorder current episode depressed: Qualifiers: Current episode severity: severe Psychotic features: with psychotic features Qualified Code(s): F31.5 - Bipolar disorder, current episode depressed, severe, with psychotic features Status: Acute Code(s): F31.30 - Bipolar disorder, current episode depressed, mild or moderate severity, unspecified (2) Suicidal ideation: Status: Acute Code(s): R45.851 - Suicidal ideations (3) Opioid use disorder, mild, in early remission, abuse: Status: Acute Code(s): F11.11 - Opioid abuse, in remission Plan admit to [facility] Cv 15 min checks meds continued collect collateral verify haldol deconoate dose and admin date labs: CBC, CMP, TSH, T4, A1c, lipid panel. folate, vit B12 discharge planning with team 07/29:Pt reports feeling depressed today;pt stated, I came here because I was feeling suicidal because when I was at [facility] there were drug dealers at every corner. It was triggering me to use since I've been sober for four months . Pt reports he would like to maintain his sobriety and reconnect with his family. Pt reports suicidal ideation without plan; pt stated, I just want to feel comfortable in my own skin . pt denies HI/VH/AH. pt requested clonidine to be increased to 0.2mg TID. 07/30: Pt reports feeling better today; pt stated, I'm doing a lot better today. Talking to the [place] helped me a lot and we said a pray and blessing. I'm not feel suicidal . Pt reports he is hoping to get into a program ; pt denies SI/HI/VH/AH. continue current tx plan. 07/31: Pt reports feeling good today; pt stated, getting away from that place I was staying make me feel better . Pt reports sleeping well. Pt denies SI/HI/VH/AH. continue current tx plan. 08/01: continue current tx plan. 08/02: continue tx plan. 08/03: keeping to self. Pt reports feeling good today; slept well. pt stated, I'm feeling more stable with the medications. I'm focused on staying sober . Pt denies SI/HI/VH/AH. 08/04 continue tx. 08/05 continue tx. 08/06 continue tx. Reason for continued inpatient stay Substantial Risk for: inability to function Time Spent With Patient Time: Total time managing care of this patient today ____ minutes.
[2023-08-07 10:03] VITALS: BMI 45.0
[2023-08-07] MEDS: OXcarbazepine 300 MG TABLET 600 MG PO (21:09)
[2023-08-07 21:10] VITALS: BP 128/71; PULSE 61; RESP 18; TEMP 37; O2SAT 96
[2023-08-07] MEDS: cloNIDine HCL 0.2 MG TABLET PO (21:12)
[2023-08-07] MEDS: Prazosin HCL 1 MG CAPSULE 2 MG PO (21:12)
[2023-08-07] MEDS: Benztropine Mesylate 0.5 MG TABLET PO (21:13)
[2023-08-07] MEDS: traZODone HCL 50 MG TABLET PO (21:13)
[2023-08-08 07:44] VITALS: BP 102/51; PULSE 54; RESP 16; TEMP 36.7; O2SAT 95
[2023-08-08] MEDS: Escitalopram Oxalate 10 MG TABLET PO (09:48)
[2023-08-08] MEDS: Gabapentin 400 MG CAPSULE PO (09:48)
[2023-08-08] MEDS: Acetaminophen 325 MG TABLET 650 MG PO (09:51)
--- NOTE | 2023-08-08 10:28 | P.DS_ITS ---
DS: Providers Provider Date of Service: 08/08/23 Date of admission: 07/29/23 12:29 Date of discharge: 08/08/23 Primary care physician: Unknown Physician Discharging clinician: Isha Ramachandran DS: Diagnosis Discharge Diagnosis (1) Bipolar disorder current episode depressed: Status: Acute (2) Suicidal ideation: Status: Acute (3) Opioid use disorder, mild, in early remission, abuse: Status: Acute DS: Medications Discharge Medications Home Medications: Home Medications ?Medication ?Instructions ?Recorded ?Confirmed benztropine 0.5 mg tablet 0.5 mg PO BEDTIME PRN Anxiety 07/26/23 07/26/23 clonidine HCl 0.1 mg tablet 0.1 mg PO TID PRN Anxiety 07/26/23 07/26/23 escitalopram oxalate 10 mg tablet 10 mg PO DAILY 07/26/23 07/26/23 gabapentin 400 mg capsule 400 mg PO BID 07/26/23 07/26/23 haloperidol 5 mg tablet 5 mg PO BID PRN Agitation 07/26/23 07/26/23 ibuprofen 800 mg tablet 800 mg PO TID PRN pain 07/26/23 07/26/23 nicotine (polacrilex) 4 mg gum 4 mg PO Q2H 07/26/23 07/26/23 oxcarbazepine 300 mg tablet 600 mg PO BEDTIME 07/26/23 07/26/23 prazosin 2 mg capsule 2 mg PO BEDTIME 07/26/23 07/26/23 trazodone 50 mg tablet 50 mg PO BEDTIME PRN Insomnia 07/26/23 07/26/23 Mental Status Exam Mental Status Exam Narrative: Pt is alert and oriented; behavior is cooperative and calm; dressed in casual attire; mood is described as good ; eye contact appropriate; Speech is normal rate, volume and prosody and not pressured; thought process is organized and goal directed; Thought content is on tx; denies SI/HI/VH/AH. DS: Summary Hospital Course Hospital Course: 23 yo male with hx of substance use disorder, Bipolar depression and SI admitted to [facility] on CV. Pt states he began to have SI at the [facility] over the past 2 weeks; he reports he does not want to go back there but does not say why. Pt brought ot Ed by EMS from [facility]. Pt states he has not been consistent with his medications. He says he is taking haldol deconoate IM monthly and that he received his most recent injection at the [facility] approximately 2 weeks ago but this will need to be verified. Pt endorses depressed mood, paapthy, intermittent anger and anxiety; he reports clonidine helps with anxiety and haldol PRN helps with anger. Pt reports truam history but declines to speak about details; he reports 4 months sober from opiates. Pt denies hearing voices and no visula hallucinations. Past Psychiatric History: [facility] 2023 , [facility] respite x 5 days 2023, hx of inpatient off and on since childhood, [facility], detox, [facility] and dual dx treatment. Most recent one year at program called [facility] in [facility]. HOSPITAL COURSE n the unit, pt was admitted on a CV and placed on 15 minutes checks for safety. After discussing risks, benefits and alternative treatment options, pt agreed to continue most of his medication which he reported worked well for him in the past. These medications include mood stabilizer trileptal 600mg po qhs, lexapro 10mg po daily. Clonidine was increased from 0.1mg po TID to 0.2mg po TID prn for anxiety. Monitor his BP as SBP is on lower end although he denies dizziness or lightheadedness. He was visible on the unit. No signs of psychosis or delusions were noted. He was future oriented in that he is looking forward to continue substance use treatment at residential facility. There were on incidences of disruptive behaviors nor need for restraints. He was eating and sleeping well. He was accepted at [facility] in [place] to continue treatment for substance use disorder. He denied suicidal or homicidal ideation throughout this hospital stay. He was given narcan at time of discharge. Status at Discharge Cognitive/behavioral status at discharge: Pt with bright, non labile affect. No SI/HI. No psychosis or delusions. Sleeping and eating well. no aggression towards self or others. future oriented. Functional status at discharge: independent ambulation Overall status at discharge: patient is back to baseline Time Spent with Patient Time attestation: Total time managing care of this patient today ____ minutes. Discharge Plan Discharge Anticipated Discharge Date/Time: 08/08/23 10:30 Patient Disposition: Home, Self-Care Discharge Diagnosis: Bipolar disorder opioid use disorder cocaine use disorder Referrals: alexander ryan [Other] - 08/13/23 9:30 am (Appt. confirmed for 08/13/23 @ 9:30am) Discharge Medications: New nicotine (polacrilex) 2 mg Gum 4 mg buccal Q2H PRN (Reason: Nicotine Cravings) Qty: 60 0RF prazosin 2 mg capsule 2 mg PO BEDTIME Qty: 30 0RF benztropine 0.5 mg Tablet 0.5 mg PO BEDTIME Qty: 30 0RF gabapentin 400 mg Capsule 400 mg PO BID Qty: 60 0RF escitalopram oxalate 10 mg Tablet 10 mg PO DAILY Qty: 30 0RF oxcarbazepine 600 mg tablet 600 mg PO BEDTIME Qty: 30 0RF trazodone 50 mg Tablet 50 mg PO BEDTIME PRN (Reason: Insomnia) Qty: 30 0RF Discontinued ibuprofen 800 mg tablet 800 mg PO TID PRN (Reason: pain) oxcarbazepine 300 mg tablet 600 mg PO BEDTIME nicotine (polacrilex) 4 mg gum 4 mg PO Q2H trazodone 50 mg Tablet 50 mg PO BEDTIME PRN (Reason: Insomnia) Rx Instructions: [facility] escitalopram oxalate 10 mg Tablet 10 mg PO DAILY Rx Instructions: [facility] haloperidol 5 mg tablet 5 mg PO BID PRN (Reason: Agitation) clonidine HCl 0.1 mg Tablet 0.1 mg PO TID PRN (Reason: Anxiety) Rx Instructions: [facility] benztropine 0.5 mg Tablet 0.5 mg PO BEDTIME PRN (Reason: Anxiety) Rx Instructions: [facility] gabapentin 400 mg Capsule 400 mg PO BID Rx Instructions: [facility] prazosin 2 mg Capsule 2 mg PO BEDTIME Rx Instructions: [facility] Discharge Orders: Discharge Order (Routine); Ordered 08/08/23 Ordered By: Isha Ramachandran Diet: Regular diet Activity on Discharge: As tolerated Stand Alone Forms: Patient Portal Discharge page, Community Support Print Language: Gambian Care Plan Goals: 1. maintain mood 2. No SI/HI 3. No psychosis or delusions 4. harm reduction- given narcan at time of discharge Health Concerns: follow up with PCP Plan of Treatment: 1. Take medications as prescribed. 2. Go to nearest ED or call 911 in event of emergency Assessment: pt with brighter, non labile affect. No SI/HI. No psychosis or delusions. No aggression towards self or others.
[2023-08-08] MEDS: Naloxone HCl Nasal TAKE HOME 4 MG SPRAY 8 MG NOSTRILALT (10:45)
== END 2023-08-08 11:39 | disposition home or self-care (01) | DRG 885 ==
LOC: HO.ED 07-28 08:09 → HO.PADLT16 07-29 13:30
PROVIDERS: Admitting Provider Clinical Nurse Specialist Psychiatric/Mental Health; Emergency Provider Emergency Medicine Emergency Medical Services; Responsible Provider Registered Nurse; Visit Provider Psychiatry & Neurology Psychiatry
DX: F31.30 Bipolar disorder, current episode depressed, mild or moderate severity, unspecified (principal); R45.851 Suicidal ideations; F17.210 Nicotine dependence, cigarettes, uncomplicated; F11.11 Opioid abuse, in remission; Z71.6 Tobacco abuse counseling; Z91.148 Patient's other noncompliance with medication regimen for other reason; Z79.899 Other long term (current) drug therapy
CPT/HCPCS: 36415; 80053; 80061; 80076; 80307; 81003; 83036; 84439; 84443; 85025; 93005; 99285; S9485

== ENCOUNTER → 2023-07-28 07:31 | Outpatient (BNV) | payer SELFPAY | PROVIDERS: Emergency Provider Emergency Medicine Emergency Medical Services; Visit Provider Internal Medicine Cardiovascular Disease | DX: F31.30 Bipolar disorder, current episode depressed, mild or moderate severity, unspecified (principal) | CPT/HCPCS: 93010 ==

== ENCOUNTER → 2023-07-29 12:29 | Outpatient (BNV) | payer MEDICARE, MEDICAID, SELFPAY | PROVIDERS: Admitting Provider Clinical Nurse Specialist Psychiatric/Mental Health; Emergency Provider Emergency Medicine Emergency Medical Services; Visit Provider Clinical Nurse Specialist Psychiatric/Mental Health | DX: F31.5 Bipolar disorder, current episode depressed, severe, with psychotic features (principal); R45.851 Suicidal ideations; F11.11 Opioid abuse, in remission | CPT/HCPCS: 90792; 99231; 99232; 99238 ==